=== PATIENT | female | born 1985 | race Caucasian/White ===

== ENCOUNTER 2021-05-04 18:25 | Emergency (ER) | payer OTHER, SELFPAY ==
[2021-05-04 18:28] VITALS: BMI 33.3
--- NOTE | 2021-05-04 18:32 | ED_ITS ---
HPI - Psych General Chief Complaint: Urogenital-Female Stated Complaint: uti/retention, crisis Source: patient and EMS Mode of arrival: EMS Limitations: no limitations History of Present Illness HPI Narrative: 35-year-old female presents for marrow [place] via EMS for inability to straight cath and feelings of urinary retention. Patient is also suicidal. MD complaint: suicidal ideation Onset (ago): unknown Duration: constant History of same: Yes Relieving factors: none Associated psychiatric symptoms: depression, suicidal ideation, auditory hallucinations, visual hallucinations and delusions Associated symptoms: other (Urinary retention) If self harm: admits thoughts of self harm Related Data Previous Rx's Medication Instructions Recorded nitrofurantoin 100 mg PO Q12H 7 Days #14 cap 05/04/21 monohydrate/macrocrystals 100 mg capsule (Macrobid) Allergies Allergy/AdvReac Type Severity Reaction Status Date / Time No Known Allergies Allergy Verified 05/04/21 18:33 Review of Systems Review of Systems: Constitutional: No Fever, No Chills ENT/Mouth: No Ear Pain, No Nasal Congestion, No sore throat Eyes: No Eye Pain, No Swelling, No Redness Cardiovascular: No Chest Pain, No SOB Respiratory: No Cough, No Sputum, No Dyspnea Gastrointestinal: No Nausea, No Vomiting, No Diarrhea, No Hematochezia, No Melena Genitourinary: Positive urinary retention, No Dysuria, No Urinary Frequency, No Hematuria Musculoskeletal: No Myalgias Skin: No Skin Lesions, No rash Neuro: No Weakness, No Numbness, No Paresthesias, No Dizziness, No Headache Psych: positive Anxiety, positive Depression, positive SI/HI Heme/Lymph: No Lymphadenopathy Endocrine: No Polyuria, No Polydipsia Yes all other systems are reviewed and are negative [facility] Past Medical History Attestation statement: The following information was validated with the patient. Source: old records reviewed Social History Social History Advance Directives: No Advance Directives Information Provided: No Patient : No Physical Exam Vital Signs: Vital Signs: Last Vital Signs Temp 98.4 F 05/04/21 18:33 Pulse 92 05/04/21 18:33 Resp 16 05/04/21 18:33 BP 149/98 H 05/04/21 18:33 Pulse Ox 98 05/04/21 18:33 BMI result Body Mass Index 33.3 Appearance: Alert. Oriented X3. No acute distress. Eyes: Pupils equal, round and reactive to light. Strabismus noted. ENT: Pharynx normal. Moist mucous membranes. Neck: Normal inspection. Neck supple. CVS: Normal heart rate and rhythm. Pulses normal. Respiratory: No respiratory distress. Breath sounds normal. Abdomen: Soft and nontender. Skin: Skin warm and dry. Normal skin color. Normal skin turgor. Extremities: No lower extremity edema. Gait well-balanced well coordinated. Neuro: No motor deficit. No sensory deficit. Cranial nerves 2-12 intact. Course Course Course Narrative: 35-year-old female presents via EMS from [facility] for urinary retention. [facility] attempted to straight catheter however they did not obtain any urine. They did not have a bladder scan and referred her to the emergency department. The plan is for patient to return to [facility] for inpatient psychiatric care once evaluation has been completed. Bladder scan is 150. No indication of retention this time. Plan of care is to return patient to [facility]. MDM - Psych MDM Narrative Medical decision making narrative: UTI Differential Diagnosis Differential diagnosis: Likely acute psychosis Medical Records Attestation: I reviewed the patient's medical records. Lab Data Attestation: I reviewed the patient's lab results. Result diagrams: 05/04/21 19:10 05/04/21 19:10 Labs: Lab Results 05/04/21 05/04/21 05/04/21 Range/Units 19:10 19:10 19:10 WBC 11.8 H (4.8-10.8) X10*3/uL RBC 4.33 (4.20-5.50) X10*6/uL Hgb 13.7 (12.0-16.0) g/dl Hct 40.8 (37.0-47.0) % MCV 94.2 (80.0-98.0) fL MCH 31.6 (27.0-33.0) pg MCHC 33.6 (31.0-35.0) g/dl RDW 12.4 (11.0-16.0) % Plt Count 288 (160-400) X10*3/uL MPV 9.0 L (9.4-12.3) fL Immature Gran % (Auto) 0.4 (0.0-0.4) % Neut % (Auto) 71.7 (45-73) % Lymph % (Auto) 17.4 L (20-40) % [place] % (Auto) 10.4 (2-11) % Eos % (Auto) 0.0 (0-4) % Baso % (Auto) 0.1 (0-2) % Lymph # (Auto) 2.1 (1.2-4.9) X10*3/uL [place] # (Auto) 1.2 (0.1-1.2) X10*3/uL Eos # (Auto) 0.0 (0.0-0.4) X10*3/uL Baso # (Auto) 0.0 (0.0-0.2) X10*3/uL Abs Immat Gran (auto) 0.05 H (0.00-0.03) X10*3/uL Absolute Neuts (auto) 8.5 H (2.0-8.3) x10*3/uL Absolute Nucleated RBC 0.000 (0.0-0.012) X10*3/uL Nucleated RBC % (auto) 0.0 (0.0-0.2) /100WBC Sodium 138 (135-145) mmol/L Potassium 4.1 (3.3-5.1) mmol/L Chloride 103 (96-108) mmol/L Carbon Dioxide 26 (22-29) mmol/L Anion Gap 13 (12-20) BUN 15 (9-16) mg/dL Creatinine 1.00 (0.5-1.4) mg/dL Estim Creat Clear Calc 89.0 Estimated GFR > 60 Random Glucose 104 (60-115) mg/dL Calcium 9.6 (8.4-10.2) mg/dL Total Bilirubin 0.4 (0.0-1.0) mg/dL Direct Bilirubin 0.2 (0.0-0.5) mg/dL AST 42 H (5-31) U/L ALT 57 H (0-31) U/L Alkaline Phosphatase 92 (39-117) U/L Total Protein 7.5 (6.5-8.0) g/dL Albumin 4.4 (3.5-5.0) g/dL Lipase 29 (8-78) U/L Ethyl Alcohol < 10 mg/dL COVID-19 (STEVIE) (Negative) COVID-19 Clin Com 05/04/21 Range/Units 19:10 WBC (4.8-10.8) X10*3/uL RBC (4.20-5.50) X10*6/uL Hgb (12.0-16.0) g/dl Hct (37.0-47.0) % MCV (80.0-98.0) fL MCH (27.0-33.0) pg MCHC (31.0-35.0) g/dl RDW (11.0-16.0) % Plt Count (160-400) X10*3/uL MPV (9.4-12.3) fL Immature Gran % (Auto) (0.0-0.4) % Neut % (Auto) (45-73) % Lymph % (Auto) (20-40) % [place] % (Auto) (2-11) % Eos % (Auto) (0-4) % Baso % (Auto) (0-2) % Lymph # (Auto) (1.2-4.9) X10*3/uL [place] # (Auto) (0.1-1.2) X10*3/uL Eos # (Auto) (0.0-0.4) X10*3/uL Baso # (Auto) (0.0-0.2) X10*3/uL Abs Immat Gran (auto) (0.00-0.03) X10*3/uL Absolute Neuts (auto) (2.0-8.3) x10*3/uL Absolute Nucleated RBC (0.0-0.012) X10*3/uL Nucleated RBC % (auto) (0.0-0.2) /100WBC Sodium (135-145) mmol/L Potassium (3.3-5.1) mmol/L Chloride (96-108) mmol/L Carbon Dioxide (22-29) mmol/L Anion Gap (12-20) BUN (9-16) mg/dL Creatinine (0.5-1.4) mg/dL Estim Creat Clear Calc Estimated GFR Random Glucose (60-115) mg/dL Calcium (8.4-10.2) mg/dL Total Bilirubin (0.0-1.0) mg/dL Direct Bilirubin (0.0-0.5) mg/dL AST (5-31) U/L ALT (0-31) U/L Alkaline Phosphatase (39-117) U/L Total Protein (6.5-8.0) g/dL Albumin (3.5-5.0) g/dL Lipase (8-78) U/L Ethyl Alcohol mg/dL COVID-19 (STEVIE) Negative (Negative) COVID-19 Clin Com See Note Discharge Plan Discharge Clinical Impression: Urinary tract infection Patient Disposition: Xfer Psychiatric Hosp Instructions: Urinary Tract Infection in Women (ED) Additional Instructions: You were evaluated for urinary retention. Bladder scan indicates 150 mL of urine in the bladder. We will treat you for urinary tract infection. Please take Macrobid 100 mg twice a day for the next 7 days. Continue to follow-up with psychiatry and all medications per Shira Damian. Thank you for choosing this emergency department for evaluation. Please follow-up with primary care physician as needed. Return to the emergency department for any new, concerning, or worsening symptoms. Prescriptions: New nitrofurantoin monohyd/m-cryst [Macrobid] 100 mg capsule 100 mg PO Q12H 7 Days Qty: 14 0RF Rx Instructions: must administer with a meal/food Interventions: ED Discharge Assessment Last Done: 05/04/21 20:43 Discharge Date/Time: 05/04/21 20:45
[2021-05-04 18:33] VITALS: BP 149/98; PULSE 92; RESP 16; TEMP 36.9; O2SAT 98
[2021-05-04 19:15] LABS: MANUAL DIFF FLAG NO
[2021-05-04 19:16] LABS: Basophils Percent Auto 0.1 % (0-2); Hematocrit 40.8 % (37.0-47.0); Hemoglobin 13.7 g/dl (12.0-16.0); Imm Gran Abs Auto 0.05 X10*3/uL (0.00-0.03); Imm Gran Pct Auto 0.4 % (0.0-0.4); Lymphocytes Absolute Auto 2.1 X10*3/uL (1.2-4.9); Lymphocytes Percent Auto 17.4 % (20-40); Mean Corpuscular HGB Conc 33.6 g/dl (31.0-35.0); Mean Corpuscular Hemoglobin 31.6 pg (27.0-33.0); Mean Corpuscular Volume 94.2 fL (80.0-98.0); Monocytes Absolute Auto 1.2 X10*3/uL (0.1-1.2); Monocytes Percent Auto 10.4 % (2-11); Neutrophils Absolute Auto 8.5 x10*3/uL (2.0-8.3); Neutrophils Percent Auto 71.7 % (45-73); Platelet Count 288 X10*3/uL (160-400); Red Blood Count 4.33 X10*6/uL (4.20-5.50); Red Cell Distribution Width 12.4 % (11.0-16.0); White Blood Count 11.8 X10*3/uL (4.8-10.8)
[2021-05-04 19:32] LABS: COVID-19 Test Negative (Negative); Ethanol < 10 mg/dL
[2021-05-04 19:35] LABS: Alanine Aminotransferase 57 U/L (0-31); Albumin Level 4.4 g/dL (3.5-5.0); Alkaline Phosphatase 92 U/L (39-117); Anion Gap 13 (12-20); Aspartate Amino Transferase 42 U/L (5-31); Bilirubin Direct 0.2 mg/dL (0.0-0.5); Bilirubin Total 0.4 mg/dL (0.0-1.0); Blood Urea Nitrogen 15 mg/dL (9-16); Calcium 9.6 mg/dL (8.4-10.2); Carbon Dioxide 26 mmol/L (22-29); Chloride 103 mmol/L (96-108); Estimated Glomerular Filt Rate > 60; Glucose Random 104 mg/dL (60-115); Lipase 29 U/L (8-78); Potassium 4.1 mmol/L (3.3-5.1); Sodium 138 mmol/L (135-145); Total Protein 7.5 g/dL (6.5-8.0)
[2021-05-04] MEDS: Nitrofurantoin Monohyd/M-Cryst 100 MG CAPSULE PO (20:29)
--- NOTE | 2021-05-04 20:38 | PC.NURSE ---
ATTEMPTING TO CALL [facility] MULTIPLE TIMES, ONLY RECEIVING A BUSY SIGNAL OR RECORDED LINE WITH NO OPTION TO TALK TO A STAFF MEMBER TO EXPLAIN THAT PATIENT IS RETURNING TO FACILITY. PATIENT MEDICATED PER MAR AND REPORT GIVEN TO EMS
== END 2021-05-04 20:45 ==
PROVIDERS: Nurse Practitioner Family; Emergency Provider Internal Medicine
DX: N39.0 Urinary tract infection, site not specified (principal); R33.9 Retention of urine, unspecified; R45.851 Suicidal ideations; F33.1 Major depressive disorder, recurrent, moderate; R44.0 Auditory hallucinations; R44.1 Visual hallucinations; Z20.822 Contact with and (suspected) exposure to COVID-19; Z79.899 Other long term (current) drug therapy
CPT/HCPCS: 36415; 51798; 80048; 80076; 82077; 83690; 85025; 87635; 99283; 99284

== ENCOUNTER 2021-05-21 18:37 | Inpatient (IN) | payer OTHER, SELFPAY ==
[2021-05-21] MEDS: clonazePAM 0.5 MG TABLET PO (20:25)
[2021-05-21] MEDS: Melatonin 3 MG TABLET 6 MG PO (20:25)
[2021-05-21] MEDS: risperiDONE 2 MG TABLET PO (20:25)
[2021-05-21] MEDS: Zolpidem Tartrate 5 MG TABLET PO (20:25)
[2021-05-21] MEDS: Benztropine Mesylate 1 MG TABLET PO (20:58)
[2021-05-21] MEDS: traZODone HCL 50 MG TABLET PO (21:56)
--- NOTE | 2021-05-21 22:39 | PC.ADMIT ---
35 y.o. female admitted from [facility] on a CV for psychiatric evaluation. Per crisis report: Pt was discharged from [facility] on and has been hearing voices. Pt expressed suicidality at times to her [facility] therapist. Pt has been hearing voices telling her kill self and other people . On admission Pt presents A&O, 7/10 anxiety, 8/10 depression, and guarded. Pt reported to RN that she is unable to urinate but was able to void. PVR 27mls. Pt reports that she is hearing voices to kill self . Pt reports +SI with no plan or intent. Pt contracted for safety. Pt denies hi,vh at this time. Pt reported that she can't sit for long periods of time and has to get up to walk. Case discussed with mark Loera. Pt on 15 minute checks. Pt reports PMHx: Hypothyroidism, HTH, Anxiety, Hernia Sx 2019
[2021-05-21 22:55] VITALS: BMI 42.0
[2021-05-22] MEDS: traZODone HCL 50 MG TABLET PO (00:42)
[2021-05-22] MEDS: hydrOXYzine HCL 25 MG TABLET PO ×2 (00:42→16:09)
[2021-05-22] MEDS: Benztropine Mesylate 1 MG TABLET PO ×3 (04:14→20:03)
[2021-05-22] MEDS: Levothyroxine Sodium 112 MCG TABLET PO (04:14)
[2021-05-22] MEDS: clonazePAM 0.5 MG TABLET PO ×3 (04:14→20:09)
[2021-05-22 05:56] VITALS: BP 142/90; PULSE 98; RESP 18; TEMP 36.4; O2SAT 98
[2021-05-22 07:00] VITALS: BMI 41.1
[2021-05-22] MEDS: Sertraline HCL 50 MG TABLET 150 MG PO (08:30)
[2021-05-22] MEDS: risperiDONE 2 MG TABLET PO (08:31)
[2021-05-22 09:04] LABS: Estimated Average Glucose 108 mg/dL; Hemoglobin A1c % 5.4 %
--- NOTE | 2021-05-22 09:48 | HO.PM.IMCN ---
History of Present Illness Data of Consult Service Date: 05/22/21 Primary Care Provider: Unknown Physician HPI Reason for consult: Routine Medical H&P This is a 35 yo F with a PMH of hypothyroidism who is admitted to the inpatient psych unit. Medical consult requested for routine medical H&P. Pt is seen and examined in the exam room. market risk manager is present for the H&P. Pt requesting her psychiatric medications. She reports a history of hyperthyroidism (I believe she meant hypo as she is on synthroid) and HTN (do not see any medications on her med list). PMH ?? HTN (although not on meds) Hypothryoidism PSH Hernia repair SH Denies tobacco, alcohol, illicit substances FH None that she is aware of. Review of Systems Review of Systems: negative except HPI PMFSH Social History Household Members: Spouse, Family and Children Housing: Apartment Do you presently have visiting nurse or other home services: Yes Patient Tobacco Use Status: Former Tobacco user Use of substances other than those prescribed or required for medical reasons: No Currently Displaying Signs/Symptoms of Drug Intoxication Withdrawal: No Any prior treatment program specific to substance use: No Have you been hit, kicked, punched, or otherwise hurt by someone within the past year? If so, by whom?: No Do you feel safe in your current relationship?: Yes Is there a partner from a previous relationship who is making you feel unsafe now?: No Are you made to feel afraid or neglected: No Spiritual Healthcare Practices: Zoroastrian Advance Directives: No Advance Directives Information Provided: No Do you have thoughts of harming others: None Do you have a plan to hurt others: No Plan Recently lost weight without trying: No Nutrition Risks: No Nutritional Risk Patient : No : No Poor oral hygiene: No Meds Allergies Allergy/AdvReac Type Severity Reaction Status Date / Time No Known Allergies Allergy Verified 05/04/21 18:33 Active Medications: Current Medications Acetaminophen (Acetaminophen 325 Mg Tablet) 650 mg PO Q6H PRN PRN Reason: Headache/Pain Mild Scale (1-3) Al Hydroxide/Mg Hydroxide (Magnesium Hydrox/Alum Hydrox 30 Ml Oral.Susp) 30 ml PO Q6H PRN PRN Reason: Heartburn/Nausea Benztropine Mesylate (Benztropine Mesylate 1 Mg Tablet) 1 mg PO BID PRN PRN Reason: akathesia Last Admin: 05/22/21 08:31 Dose: 1 mg Documented by: Clonazepam (Clonazepam 0.5 Mg Tablet) 0.5 mg PO BID PRN PRN Reason: extreme anxiety Last Admin: 05/22/21 08:30 Dose: 0.5 mg Documented by: Hydroxyzine HCl (Hydroxyzine Hcl 25 Mg Tablet) 25 mg PO Q6H PRN PRN Reason: Anxiety Last Admin: 05/22/21 00:42 Dose: 25 mg Documented by: Levothyroxine Sodium (Levothyroxine Sodium 112 Mcg Tablet) 112 mcg PO DAILY@0600 [facility] Last Admin: 05/22/21 04:14 Dose: 112 mcg Documented by: Magnesium Hydroxide (Milk Of Magnesia 30 Ml Oral.Susp) 30 ml PO DAILY PRN PRN Reason: Constipation Melatonin (Melatonin 3 Mg Tablet) 6 mg PO BEDTIME PRN PRN Reason: insomnia Last Admin: 05/21/21 20:25 Dose: 6 mg Documented by: Risperidone (Risperidone 2 Mg Tablet) 2 mg PO BID [facility] Last Admin: 05/22/21 08:31 Dose: 2 mg Documented by: Sertraline HCl (Sertraline Hcl 50 Mg Tablet) 150 mg PO DAILY [facility] Last Admin: 05/22/21 08:30 Dose: 150 mg Documented by: Trazodone HCl (Trazodone Hcl 50 Mg Tablet) 50 mg PO BEDTIME PRN PRN Reason: Insomnia Last Admin: 05/22/21 00:42 Dose: 50 mg Documented by: Zolpidem Tartrate (Zolpidem Tartrate 5 Mg Tablet) 5 mg PO BEDTIME PRN PRN Reason: Insomnia Last Admin: 05/21/21 20:25 Dose: 5 mg Documented by: Physical Exam Vital Signs and Narrative: Vital Signs: Last Vital Signs Temp 97.6 F 05/22/21 05:56 Pulse 98 05/22/21 05:56 Resp 18 05/22/21 05:56 BP 142/90 H 05/22/21 05:56 Pulse Ox 98 05/22/21 05:56 BMI result Body Mass Index 42.0 Const: Other: Constitutional - Awake and Alert, No apparent distress Eyes - PERRLA, EOMI, strabismus on the L eye Cardiovascular - S1S2, RRR, No edema Respiratory - Normal lung expansion, Normal respiratory effort, No respiratory distress, CTA bilaterally Gastrointestinal - NT / ND; +BS; No rebound or guarding - No CVA tenderness Extremities - no calf tenderness bilaterally, no swelling Musculoskeletal - Normal inspection, normal ROM Skin - Warm/Dry Neurological - Alert & oriented x3, No focal deficit; CN 2-12 intact bilaterally Results Labs Labs: Laboratory Results - last 24 hr 05/22/21 08:03 Estimat Average Glucose 108 Hemoglobin A1c % 5.4 Assessment and Plan (1) Routine medical exam: Status: Acute Plan This is a 35 yo F with a PMH of hypothyroidism who is admitted to the inpatient psych unit. Medical consult requested for routine medical H&P. Hypothyroid Continue her synthroid In regards to the patients reported history of HTN - BP measure this AM is slightly elevated; Can continue her baseline meds if she is on any. If not any meds, do not feel that she needs to be started on antihypertensives at this time. Continue with routine BP monitoring. Check routine labs if not done so recently. Medically stable at this time, will sign off. Reconsult PRN. Thank you.
[2021-05-22 10:08] LABS: Cholesterol 213 mg/dL; HDL Cholesterol 38 mg/dL; LDL Cholesterol Calculated 154 mg/dl; Magnesium 2.2 mg/dL (1.6-2.6); Triglycerides 107 mg/dL
[2021-05-22 10:32] LABS: Free T4 (Free Thyroxine) 1.48 ng/dL (0.71-1.85); Thyroid Stimulating Hormone 3.47 uIU/mL (0.32-4.0)
[2021-05-22 10:40] LABS: Vitamin B12 312 pg/mL (200-900)
[2021-05-22 10:49] LABS: UPreg QC Valid YES; Urine Pregnancy NEGATIVE (NEGATIVE)
[2021-05-22] MEDS: OXcarbazepine 300 MG TABLET PO ×2 (11:19→20:03)
[2021-05-22] MEDS: LORazepam 1 MG TABLET 2 MG PO (11:19)
--- NOTE | 2021-05-22 17:30 | P.HPPS_ITS ---
HPI Date of Service: 05/22/21 Chief Complaint: Major Depressive Disorder Sources of Information: patient interviewed, chart reviewed and crisis/core team assessment reviewed HPI Subjective Notes: [place] Warning and Conditional Voluntary Healthcare Proxy: No Guardianship: No Narrative: 35 yo female, transfer from [facility], discharged from [facility] 3 with reports of AH, depression, SI, HI. Reports disrupted sleep and appetite along with perceptual alterations. Crisis reports medicine inconsistency. Lynnette from [facility] reports pt's new med list included Benztropine 1 mg bid, Levothyr ozine 112 mcg daily, Seroquel 100 mg a.m. 400 mg hs, Haldol 2 mg a.m and Propranolol 10 mg tid. Met with pt who was very anxious and experiencing Akathesia. Ativan 2 mg po given with some relief for pt. Due to her level of distress she is a poor historian, however, did interact with tw several times during the day, asking appropriate questions and accepting assistance from the team. Past Psychiatric History: IP: 6 OP: [place]- Lynnette Frazier and Arlet Zapata, and a clinician from [facility] Also has Lynnette from the [facility] SA: Denies SIBS: Denies Med Trials: Yes, but I am not sure which ones. Medical Evaluation Reviewed: Yes [facility] Medical History (Updated 05/22/21 @ 19:20 by Sonam Lazaro, JE) Severe recurrent major depression w/psychotic features, mood-congruent Narrative: HTN Hypothyroidism Narrative: Hernia surgery 2019 Family History: Pt denies Social History: Raised locally by her mother. One of nine, four are half- siblings. Disabled, receives SSI 8 years, two children, ages 7 and 2. The family shares a home with other family members Substance History: Denies Stopped cannabis in 2018 Trauma History: Mom in 2019 Mother in law recently as well she states Diagnostics Vital Signs (24Hr): Vital Signs - 24 hr 05/22/21 05:56 Temperature 97.6 F Pulse Rate 98 Respiratory Rate 18 Blood Pressure 142/90 H Pulse Oximetry 98 BMI result Body Mass Index 41.1 Labs Labs: Laboratory Results - last 48 hr 05/22/21 05/22/21 05/22/21 08:03 08:03 08:03 Estimat Average Glucose 108 Hemoglobin A1c % 5.4 Magnesium 2.2 Triglycerides 107 Cholesterol 213 LDL Cholesterol, Calc 154 HDL Cholesterol 38 Vitamin B12 312 Folate 17.0 TSH 3.47 Free T4 1.48 Urine Test 05/22/21 10:15 Estimat Average Glucose Hemoglobin A1c % Magnesium Triglycerides Cholesterol LDL Cholesterol, Calc HDL Cholesterol Vitamin B12 Folate TSH Free T4 Urine Test NEGATIVE Meds/Allergies Meds Home Medications Acetaminophen (Acetaminophen 325 Mg Tablet) 650 mg PO Q6H PRN PRN Reason: Headache/Pain Mild Scale (1-3) Al Hydroxide/Mg Hydroxide (Magnesium Hydrox/Alum Hydrox 30 Ml Oral.Susp) 30 ml PO Q6H PRN PRN Reason: Heartburn/Nausea Benztropine Mesylate (Benztropine Mesylate 1 Mg Tablet) 1 mg PO BID [facility] Clonazepam (Clonazepam 0.5 Mg Tablet) 0.5 mg PO BID PRN PRN Reason: extreme anxiety Last Admin: 05/22/21 08:30 Dose: 0.5 mg Documented by: Haloperidol (Haloperidol 1 Mg Tablet) 2 mg PO DAILY [facility] Hydroxyzine HCl (Hydroxyzine Hcl 25 Mg Tablet) 25 mg PO Q6H PRN PRN Reason: Anxiety Last Admin: 05/22/21 16:09 Dose: 25 mg Documented by: Levothyroxine Sodium (Levothyroxine Sodium 112 Mcg Tablet) 112 mcg PO SHIMA Y@0600 [facility] Last Admin: 05/22/21 04:14 Dose: 112 mcg Documented by: Magnesium Hydroxide (Milk Of Magnesia 30 Ml Oral.Susp) 30 ml PO DAILY PRN PRN Reason: Constipation Melatonin (Melatonin 3 Mg Tablet) 6 mg PO BEDTIME PRN PRN Reason: insomnia Last Admin: 05/21/21 20:25 Dose: 6 mg Documented by: Oxcarbazepine (Oxcarbazepine 300 Mg Tablet) 300 mg PO BID [facility] Last Admin: 05/22/21 11:19 Dose: 300 mg Documented by: Propranolol HCl (Propranolol Hcl 10 Mg Tablet) 10 mg PO TID [facility]; Protocol Quetiapine Fumarate (Quetiapine Fumarate 100 Mg Tablet) 100 mg PO DAILY [facility] Quetiapine Fumarate (Quetiapine Fumarate 400 Mg Tablet) 400 mg PO BEDTIME [facility] Sertraline HCl (Sertraline Hcl 50 Mg Tablet) 150 mg PO DAILY [facility] Last Admin: 05/22/21 08:30 Dose: 150 mg Documented by: Zolpidem Tartrate (Zolpidem Tartrate 5 Mg Tablet) 5 mg PO BEDTIME PRN PRN Reason: Insomnia Last Admin: 05/21/21 20:25 Dose: 5 mg Documented by: Allergies Allergies Allergy/AdvReac Type Severity Reaction Status Date / Time shellfish derived AdvReac Severe Vomiting Verified 05/22/21 19:21 Mental Status Exam Mental Status Exam Patient Appearance: Fatigued Patient Orientation: Person, Place, Time and Situation Level of Consciousness: Alert Patient Behavior: Talkative and Good Eye Contact Mood Description: Anxious and Apprehensive Affect Description: Constricted Patient Cognition Impaired: Yes Ability to Follow Directions: Good Speech Pattern: Spontaneous Speech Memory Description: Episodic Impaired Hallucinations: Auditory and Visual Delusions: Paranoid Ideation and Present Perceptual Disturbances: Depersonalization and Derealization Thought Process: Racing, Distracted and Rumination Thought Content: positive for Racing, positive for [place], positive for Circumstantial, positive for Perseveration, positive for Suicidal Ideation and positive for Homicidal Ideation Depressive Symptoms: Increased Anxiety, Diff. Making Decisions, Increased Irritability, Difficulty Sleeping, Hopelessness, Unhappiness, Increased Fatigue, Thoughts of /Suicide and Low Self Esteem Abnormal Motor Activity Signs and Symptoms: Restlessness Judgement: Fair Assessment & Plan Assessment & Plan (1) Severe recurrent major depression w/psychotic features, mood-congruent: Status: Acute Code(s): F33.3 - Major depressive disorder, recurrent, severe with psychotic symptoms Plan 35 yo female, recent discharge from [facility] reporting an increase in depressive sx with SI, HI, AH, VH and paranoia. Plan: Re-establish regime Attempt to treat akathesia Labs, EKG Trileptal 300 mg bid to assist with anxiety, mood mgt. Collateral contacts Patient educated on: diagnosis, medication risk/benefits and therapeutic strategies Informed Consent: understands and further education needed Reason for continued inpatient stay Substantial Risk for: harm to self, harm to others, inability to function and rapid decompensation
[2021-05-22 18:00] VITALS: BP 118/79; PULSE 68; RESP 16; TEMP 36.5; O2SAT 98
[2021-05-22] MEDS: Propranolol HCL 10 MG TABLET PO (20:03)
[2021-05-22] MEDS: QUEtiapine Fumarate 400 MG TABLET PO (20:03)
[2021-05-22] MEDS: Melatonin 3 MG TABLET 6 MG PO (20:08)
[2021-05-22] MEDS: Acetaminophen 325 MG TABLET 650 MG PO (20:30)
--- NOTE | 2021-05-22 23:10 | PC.NURSE ---
Pt alert and oriented. VSS. reported difficulty urinating, bladder scan assessment done. 125ml Residual recorded.
[2021-05-22] MEDS: Zolpidem Tartrate 5 MG TABLET PO (23:53)
[2021-05-23 06:00] VITALS: BP 124/100; PULSE 98; RESP 16; TEMP 36.6; O2SAT 97
[2021-05-23] MEDS: Levothyroxine Sodium 112 MCG TABLET PO (06:43)
[2021-05-23 08:35] LABS: Estimated Average Glucose 108 mg/dL; Hemoglobin A1c % 5.4 %
[2021-05-23] MEDS: Sertraline HCL 50 MG TABLET 150 MG PO (08:56)
[2021-05-23] MEDS: QUEtiapine Fumarate 100 MG TABLET PO (08:56)
[2021-05-23] MEDS: OXcarbazepine 300 MG TABLET PO (08:56)
[2021-05-23] MEDS: Propranolol HCL 10 MG TABLET PO ×3 (08:56→20:03)
[2021-05-23] MEDS: HaloperidoL 1 MG TABLET 2 MG PO (08:56)
[2021-05-23] MEDS: Benztropine Mesylate 1 MG TABLET PO (08:56)
--- NOTE | 2021-05-23 09:00 | ECG_ITS ---
Test Reason : CK CQ Blood Pressure : / mmHG Vent. Rate : 089 BPM Atrial Rate : 089 BPM P-R Int : 130 ms QRS Dur : 084 ms QT Int : 360 ms P-R-T Axes : 040 032 -12 degrees QTc Int : 438 ms Sinus rhythm with occasional Premature ventricular complexes Otherwise normal ECG No previous ECGs available Referred By: Sonam Lazaro Electronically Signed By:ESPERANZA ANGEL MD
[2021-05-23 13:03] LABS: Vitamin B12 319 pg/mL (200-900)
[2021-05-23] MEDS: clonazePAM 0.5 MG TABLET PO (13:31)
[2021-05-23] MEDS: Milk of Magnesia 30 ML ORAL.SUSP PO (13:33)
--- NOTE | 2021-05-23 14:33 | P.PNPSI_ITS ---
Subjective Subjective Date of Service: 05/23/21 Reason For Visit: Major Depressive Disorder Subjective Notes: Conditional Voluntary Medical Problems Affecting Mental Status: No Interim History: Anthony reports she did not sleep well. Today she has experienced urinary retention, reports constipation, and continues with akathesia symptoms. Medication review--potential offending agents reviewed and discontinued- hydroxyzine, benztropine, haldol, trileptal taper to complete on 05/25. Given MOM for constipation. Akathesia sx addressed by scheduling Klonopin, adding low dose Gabapentin, low dose Mirtazapine, and will continue Propranolol. Discussed with pt changing Seroquel, however, she reports this has been helpful and she would like to continue this agent. Recent med changes as she was recently discharged from [facility] 05/16/21. Pt denies SI. Reports safety on the unit and feels she can let the team know if her safety is at risk. Medication Compliance: Yes Side effects from medications: No Attending Groups: Intermittent Review of Systems Akathesia Urinary Retention Constipation Medical Review of Systems: unchanged Review of Systems Gastrointestinal: Reports constipation Genitourinary: Reports other (urinary retention-relieved with nursing interventions) Reports other (akathesia) Psychiatric: Reports abnormal sleep pattern, Reports anxiety, Reports depression, Reports difficulty concentrating, Reports anhedonia, Reports homicidal ideation and Reports suicidal ideation Mental Status Exam Mental Status Exam Patient Appearance: Fatigued Patient Orientation: Person, Place, Time and Situation Level of Consciousness: Alert Patient Behavior: Talkative and Good Eye Contact Mood Description: Anxious and Apprehensive Affect Description: Constricted Patient Cognition Impaired: Yes Ability to Follow Directions: Good Speech Pattern: Spontaneous Speech Memory Description: Episodic Impaired Hallucinations: Auditory and Visual Delusions: Paranoid Ideation and Present Perceptual Disturbances: Depersonalization and Derealization Thought Process: Racing, Distracted and Rumination Thought Content: positive for [place], positive for [place], positive for Circumstantial, positive for Perseveration, positive for Suicidal Ideation and positive for Homicidal Ideation Depressive Symptoms: Increased Anxiety, Diff. Making Decisions, Increased I rritability, Difficulty Sleeping, Hopelessness, Unhappiness, Increased Fatigue, Thoughts of /Suicide and Low Self Esteem Abnormal Motor Activity Signs and Symptoms: Restlessness Judgement: Fair Diagnostics Vital Signs (24Hr): Vital Signs - 24 hr 05/22/21 18:00 05/23/21 06:00 Temperature 97.7 F 97.8 F Pulse Rate 68 98 Respiratory Rate 16 16 Blood Pressure 118/79 124/100 H Pulse Oximetry 98 97 BMI result Body Mass Index 41.1 Labs Labs: Laboratory Results - last 48 hr 05/22/21 05/22/21 05/22/21 08:03 08:03 08:03 Estimat Average Glucose 108 Hemoglobin A1c % 5.4 Magnesium 2.2 Triglycerides 107 Cholesterol 213 LDL Cholesterol, Calc 154 HDL Cholesterol 38 Vitamin B12 312 Folate 17.0 TSH 3.47 Free T4 1.48 Urine Test 05/22/21 05/23/21 05/23/21 10:15 07:51 07:51 Estimat Average Glucose 108 Hemoglobin A1c % 5.4 Magnesium Triglycerides Cholesterol LDL Cholesterol, Calc HDL Cholesterol Vitamin B12 319 Folate 17.0 TSH Free T4 Urine Test NEGATIVE Medications Medications Current Medications Acetaminophen (Acetaminophen 325 Mg Tablet) 650 mg PO Q6H PRN PRN Reason: Headache/Pain Mild Scale (1-3) Last Admin: 05/22/21 20:30 Dose: 650 mg Documented by: Al Hydroxide/Mg Hydroxide (Magnesium Hydrox/Alum Hydrox 30 Ml Oral.Susp) 30 ml PO Q6H PRN PRN Reason: Heartburn/Nausea Clonazepam (Clonazepam 1 Mg Tablet) 1 mg PO BID [facility] Levothyroxine Sodium (Levothyroxine Sodium 112 Mcg Tablet) 112 mcg PO DAILY@0600 [facility] Last Admin: 05/23/21 06:43 Dose: 112 mcg Documented by: Magnesium Hydroxide (Milk Of Magnesia 30 Ml Oral.Susp) 30 ml PO DAILY PRN PRN Reason: Constipation Last Admin: 05/23/21 13:33 Dose: 30 ml Documented by: Melatonin (Melatonin 3 Mg Tablet) 6 mg PO BEDTIME PRN PRN Reason: insomnia Last Admin: 05/22/21 20:08 Dose: 6 mg Documented by: Oxcarbazepine (Oxcarbazepine 300 Mg Tablet) 300 mg PO DAILY [facility] Stop: 05/25/21 09:00 Propranolol HCl (Propranolol Hcl 10 Mg Tablet) 10 mg PO TID [facility]; Protocol Last Admin: 05/23/21 14:12 Dose: 10 mg Documented by: Quetiapine Fumarate (Quetiapine Fumarate 100 Mg Tablet) 100 mg PO DAILY [facility] Last Admin: 05/23/21 08:56 Dose: 100 mg Documented by: Quetiapine Fumarate (Quetiapine Fumarate 400 Mg Tablet) 400 mg PO BEDTIME [facility] Last Admin: 05/22/21 20:03 Dose: 400 mg Documented by: Sertraline HCl (Sertraline Hcl 50 Mg Tablet) 150 mg PO DAILY [facility] Last Admin: 05/23/21 08:56 Dose: 150 mg Documented by: Zolpidem Tartrate (Zolpidem Tartrate 5 Mg Tablet) 5 mg PO BEDTIME PRN PRN Reason: Insomnia Last Admin: 05/22/21 23:53 Dose: 5 mg Documented by: Allergies Allergies Allergy/AdvReac Type Severity Reaction Status Date / Time shellfish derived AdvReac Severe Vomiting Verified 05/22/21 19:21 Assessment & Plan Assessment & Plan (1) Severe recurrent major depression w/psychotic features, mood-congruent: Status: Acute Code(s): F33.3 - Major depressive disorder, recurrent, severe with psychotic symptoms Plan 35 yo female, recent discharge from [facility] reporting an increase in d epressive sx with SI, HI, AH, VH and paranoia. Plan: Re-establish regime Attempt to treat akathesia Labs, EKG Trileptal 300 mg bid to assist with anxiety, mood mgt. Collateral contacts 05/23/21 Urinary retention- HCG, UA, UC Akathesia-continue propranolol, schedule klonopin, lorazepam prn, low dose Gabapentin, Mirtazapine Discontinue hydroxyzine, benztropine, haldol, taper Trileptal Constipation-monitor Insomnia-continue seroquel, mirtazapine. I spent minutes with the patient and/or on the patient floor today, greater than?50% of which was spent counseling/coordinating care. Patient educated on: medication risk/benefits and therapeutic strategies Informed Consent: further education needed Reason for contiued inpatient stay Substantial Risk for: harm to self, harm to others, inability to function, rapid decompensation and med/psych decompensation
[2021-05-23 17:07] LABS: HCG Quantitative < 2 mIU/mL
[2021-05-23 18:00] VITALS: BP 132/82; PULSE 85; RESP 16; TEMP 36.5; O2SAT 98
[2021-05-23] MEDS: Gabapentin 100 MG CAPSULE PO (20:03)
[2021-05-23] MEDS: QUEtiapine Fumarate 400 MG TABLET PO (20:03)
[2021-05-23] MEDS: Mirtazapine 7.5 MG TABLET PO (20:03)
[2021-05-23] MEDS: clonazePAM 1 MG TABLET PO (20:03)
[2021-05-24 06:00] VITALS: BP 152/99; PULSE 107; RESP 18; TEMP 36.9; O2SAT 98
[2021-05-24] MEDS: Levothyroxine Sodium 112 MCG TABLET PO (06:22)
[2021-05-24] MEDS: Propranolol HCL 10 MG TABLET PO ×3 (09:18→19:57)
[2021-05-24] MEDS: Sertraline HCL 50 MG TABLET 150 MG PO (09:18)
[2021-05-24] MEDS: clonazePAM 1 MG TABLET PO ×2 (09:19→19:56)
[2021-05-24] MEDS: Gabapentin 100 MG CAPSULE PO ×2 (09:19→19:57)
[2021-05-24] MEDS: QUEtiapine Fumarate 100 MG TABLET PO (09:19)
[2021-05-24] MEDS: OXcarbazepine 300 MG TABLET PO (09:19)
[2021-05-24] MEDS: Magnesium Citrate 300 ML SOLUTION PO (14:45)
[2021-05-24 18:00] VITALS: BP 132/82; PULSE 76; RESP 16; TEMP 36.3; O2SAT 98
[2021-05-24] MEDS: QUEtiapine Fumarate 400 MG TABLET PO (19:56)
[2021-05-24] MEDS: Mirtazapine 7.5 MG TABLET PO (19:56)
[2021-05-24] MEDS: Melatonin 3 MG TABLET 6 MG PO (19:58)
--- NOTE | 2021-05-24 23:21 | P.PNPSI_ITS ---
Subjective Subjective Date of Service: 05/24/21 Reason For Visit: Major Depressive Disorder Interim History: says she's good. says she constipated and would like mag citrate. Pt also asks if medications prescribed here will be continued on discharge. [facility]thewise, no complaints, no other requests. pt's post voids<300ml Mental Status Exam Mental Status Exam Narrative: Patient Appearance:?Fatigued Patient Orientation:?Person, Place, Time and Situation Level of Consciousness:?Alert Patient Behavior:?Talkative and Good Eye Contact Mood Description:?'good Affect Description:?Constricted Patient Cognition Impaired:?Yes Ability to Follow Directions:?Good Speech Pattern:?Spontaneous Speech Memory Description:?Episodic Impaired Hallucinations:?Auditory and Visual Delusions:?Paranoid Ideation and Present Perceptual Disturbances:?Depersonalization and Derealization Thought Process:?Racing, Distracted and Rumination Thought Content:?positive for [place], positive for [place], positive for Circum[place], positive for Persever[place], positive for Suicidal Ideation and positive for Homicidal Ideation Depressive Symptoms:?Increased Anxiety, Diff. Making Decisions, Increased Irritability, Difficulty Sleeping, Hopelessness, Unhappiness, Increased Fatigue, Thoughts of /Suicide and Low Self Esteem Abnormal Motor Activity Signs and Symptoms:?Restlessness Judgement:?Fair Diagnostics Vital Signs (24Hr): Vital Signs - 24 hr 05/24/21 06:00 Temperature 98.4 F Pulse Rate 107 H Respiratory Rate 18 Blood Pressure 152/99 H Pulse Oximetry 98 BMI result Body Mass Index 41.1 Labs Labs: Laboratory Results - last 48 hr 05/23/21 05/23/21 05/23/21 07:51 07:51 16:43 Estimat Average Glucose 108 Hemoglobin A1c % 5.4 Vitamin B12 319 Folate 17.0 Beta HCG, Quant < 2 Medications Medications Current Medications Acetaminophen (Acetaminophen 325 Mg Tablet) 650 mg PO Q6H PRN PRN Reason: Headache/Pain Mild Scale (1-3) Last Admin: 05/22/21 20:30 Dose: 650 mg Documented by: Al Hydroxide/Mg Hydroxide (Magnesium Hydrox/Alum Hydrox 30 Ml Oral.Susp) 30 ml PO Q6H PRN PRN Reason: Heartburn/Nausea Clonazepam (Clonazepam 1 Mg Tablet) 1 mg PO BID [facility] Last Admin: 05/24/21 19:56 Dose: 1 mg Documented by: Gabapentin (Gabapentin 100 Mg Capsule) 100 mg PO BID [facility] Last Admin: 05/24/21 19:57 Dose: 100 mg Documented by: Levothyroxine Sodium (Levothyroxine Sodium 112 Mcg Tablet) 112 mcg PO DAILY@0600 [facility] Last Admin: 05/24/21 06:22 Dose: 112 mcg Documented by: Lorazepam (Lorazepam 0.5 Mg Tablet) 0.5 mg PO Q12H PRN PRN Reason: akathesia Magnesium Hydroxide (Milk Of Magnesia 30 Ml Oral.Susp) 30 ml PO DAILY PRN PRN Reason: Constipation Last Admin: 05/23/21 13:33 Dose: 30 ml Documented by: Melatonin (Melatonin 3 Mg Tablet) 6 mg PO BEDTIME PRN PRN Reason: insomnia Last Admin: 05/24/21 19:58 Dose: 6 mg Documented by: Mirtazapine (Mirtazapine 7.5 Mg Tablet) 7.5 mg PO BEDTIME [facility] Last Admin: 05/24/21 19:56 Dose: 7.5 mg Documented by: Oxcarbazepine (Oxcarbazepine 300 Mg Tablet) 300 mg PO DAILY [facility] Stop: 05/25/21 09:00 Last Admin: 05/24/21 09:19 Dose: 300 mg Documented by: Propranolol HCl (Propranolol Hcl 10 Mg Tablet) 10 mg PO TID [facility]; Protocol Last Admin: 05/24/21 19:57 Dose: 10 mg Documented by: Quetiapine Fumarate (Quetiapine Fumarate 100 Mg Tablet) 100 mg PO DAILY [facility] Last Admin: 05/24/21 09:19 Dose: 100 mg Documented by: Quetiapine Fumarate (Quetiapine Fumarate 400 Mg Tablet) 400 mg PO BEDTIME [facility] Last Admin: 05/24/21 19:56 Dose: 400 mg Documented by: Sertraline HCl (Sertraline Hcl 50 Mg Tablet) 150 mg PO DAILY [facility] Last Admin: 05/24/21 09:18 Dose: 150 mg Documented by: Zolpidem Tartrate (Zolpidem Tartrate 5 Mg Tablet) 5 mg PO BEDTIME PRN PRN Reason: Insomnia Last Admin: 05/22/21 23:53 Dose: 5 mg Documented by: Allergies Allergies Allergy/AdvReac Type Severity Reaction Status Date / Time shellfish derived AdvReac Severe Vomiting Verified 05/22/21 19:21 Assessment & Plan Assessment & Plan (1) Severe recurrent major depression w/psychotic features, mood-congruent: Status: Acute Code(s): F33.3 - Major depressive disorder, recurrent, severe with psychotic symptoms Plan 35 yo female, recent discharge from [facility] reporting an increase in depressive sx with SI, HI, AH, VH and paranoia. Plan: Re-establish regime Attempt to treat akathesia Labs, EKG Trileptal 300 mg bid to assist with anxiety, mood mgt. Collateral contacts 05/23/21 Urinary retention- HCG, UA, UC Akathesia-continue propranolol, schedule klonopin, lorazepam prn, low dose Gabapentin, Mirtazapine Discontinue hydroxyzine, benztropine, haldol, taper Trileptal Constipation-monitor Insomnia-continue seroquel, mirtazapine. 05/24 mag citrate x1 otherwise, no changes to regimen I spent minutes with the patient and/or on the patient floor today, greater than?50% of which was spent counseling/coordinating care. Reason for contiued inpatient stay Substantial Risk for: other
[2021-05-25] MEDS: Levothyroxine Sodium 112 MCG TABLET PO (05:26)
[2021-05-25 06:00] VITALS: BP 154/83; PULSE 90; RESP 18; TEMP 36.3
[2021-05-25] MEDS: Propranolol HCL 10 MG TABLET PO ×3 (09:07→19:22)
[2021-05-25] MEDS: Sertraline HCL 50 MG TABLET 150 MG PO (09:07)
[2021-05-25] MEDS: Gabapentin 100 MG CAPSULE PO ×2 (09:07→19:22)
[2021-05-25] MEDS: QUEtiapine Fumarate 100 MG TABLET PO (09:07)
[2021-05-25] MEDS: OXcarbazepine 300 MG TABLET PO (09:07)
[2021-05-25] MEDS: clonazePAM 1 MG TABLET PO ×2 (09:07→19:22)
--- NOTE | 2021-05-25 16:22 | HO.PSYCHPN ---
Subjective Subjective Date of Service: 05/25/21 Reason For Visit: Major Depressive Disorder Interim History: Patient reports that she is feeling overall good today and denies any SI or HI. However she does say that auditory hallucinations have increased and are bothering her, saying bad things. Regarding treatment she would like to leave medications as they are without increasing them to see if auditory hallucinations resolved on their own, to which production underwriter agrees. She informs production underwriter that she will pace the halls which is her coping mechanism. Otherwise patient is eating and sleeping well. Mental Status Exam Mental Status Exam Narrative: Patient Appearance:?hospital gown Patient Orientation:?Person, Place, Time and Situation Level of Consciousness:?Alert Patient Behavior:?calm, friendly and Good Eye Contact Mood Description:?'good Affect Description:?Constricted Patient Cognition Impaired:?Yes Ability to Follow Directions:?Good Speech Pattern:?Spontaneous Speech Memory Description:?Episodic Impaired Hallucinations:?Auditory Delusions:?Paranoid Ideation and Present Perceptual Disturbances:?Depersonalization and Derealization Thought Process:?Racing, Distracted and Rumination Thought Content:?positive for [place], positive for [place], positive for Circumstantial, positive for Perseveration, Denies SI/HI Judgement:?Fair Diagnostics Vital Signs (24Hr): Vital Signs - 24 hr 05/24/21 18:00 05/25/21 06:00 Temperature 97.4 F 97.3 F Pulse Rate 76 90 Respiratory Rate 16 18 Blood Pressure 132/82 154/83 H Pulse Oximetry 98 BMI result Body Mass Index 41.1 Labs Labs: Laboratory Results - last 48 hr 05/23/21 16:43 Beta HCG, Quant < 2 Medications Medications Current Medications Acetaminophen (Acetaminophen 325 Mg Tablet) 650 mg PO Q6H PRN PRN Reason: Headache/Pain Mild Scale (1-3) Last Admin: 05/22/21 20:30 Dose: 650 mg Documented by: Al Hydroxide/Mg Hydroxide (Magnesium Hydrox/Alum Hydrox 30 Ml Oral.Susp) 30 ml PO Q6H PRN PRN Reason: Heartburn/Nausea Clonazepam (Clonazepam 1 Mg Tablet) 1 mg PO BID [facility] Last Admin: 05/25/21 09:07 Dose: 1 mg Documented by: Gabapentin (Gabapentin 100 Mg Capsule) 100 mg PO BID [facility] Last Admin: 05/25/21 09:07 Dose: 100 mg Documented by: Levothyroxine Sodium (Levothyroxine Sodium 112 Mcg Tablet) 112 mcg PO DAILY@0600 [facility] Last Admin: 05/25/21 05:26 Dose: 112 mcg Documented by: Lorazepam (Lorazepam 0.5 Mg Tablet) 0.5 mg PO Q12H PRN PRN Reason: akathesia Magnesium Hydroxide (Milk Of Magnesia 30 Ml Oral.Susp) 30 ml PO DAILY PRN PRN Reason: Constipation Last Admin: 05/23/21 13:33 Dose: 30 ml Documented by: Melatonin (Melatonin 3 Mg Tablet) 6 mg PO BEDTIME PRN PRN Reason: insomnia Last Admin: 05/24/21 19:58 Dose: 6 mg Documented by: Mirtazapine (Mirtazapine 7.5 Mg Tablet) 7.5 mg PO BEDTIME [facility] Last Admin: 05/24/21 19:56 Dose: 7.5 mg Documented by: Propranolol HCl (Propranolol Hcl 10 Mg Tablet) 10 mg PO TID [facility]; Protocol Last Admin: 05/25/21 14:09 Dose: 10 mg Documented by: Quetiapine Fumarate (Quetiapine Fumarate 100 Mg Tablet) 100 mg PO DAILY [facility] Last Admin: 05/25/21 09:07 Dose: 100 mg Documented by: Quetiapine Fumarate (Quetiapine Fumarate 400 Mg Tablet) 400 mg PO BEDTIME [facility] Last Admin: 05/24/21 19:56 Dose: 400 mg Documented by: Sertraline HCl (Sertraline Hcl 50 Mg Tablet) 150 mg PO DAILY [facility] Last Admin: 05/25/21 09:07 Dose: 150 mg Documented by: Zolpidem Tartrate (Zolpidem Tartrate 5 Mg Tablet) 5 mg PO BEDTIME PRN PRN Reason: Insomnia Last Admin: 05/22/21 23:53 Dose: 5 mg Documented by: Allergies Allergies Allergy/AdvReac Type Severity Reaction Status Date / Time shellfish derived AdvReac Severe Vomiting Verified 05/22/21 19:21 Assessment & Plan Assessment & Plan (1) Severe recurrent major depression w/psychotic features, mood-congruent: Status: Acute Code(s): F33.3 - Major depressive disorder, recurrent, severe with psychotic symptoms Plan 35 yo female, recent discharge from [facility] reporting an increase in depressive sx with SI, HI, AH, VH and paranoia. Plan: Re-establish regime Attempt to treat akathesia Labs, EKG Trileptal 300 mg bid to assist with anxiety, mood mgt. Collateral contacts 05/23/21 Urinary retention- HCG, UA, UC Akathesia-continue propranolol, schedule klonopin, lorazepam prn, low dose Gabapentin, Mirtazapine Discontinue hydroxyzine, benztropine, haldol, taper Trileptal Constipation-monitor Insomnia-continue seroquel, mirtazapine. 05/24 mag citrate x1 otherwise, no changes to regimen 05/25 Reports bothersome AH however does not want change in medication and wants to see if resolves on its own I spent minutes with the patient and/or on the patient floor today, greater than?50% of which was spent counseling/coordinating care. Patient educated on: medication risk/benefits Informed Consent: understands Reason for contiued inpatient stay Substantial Risk for: med/psych decompensation
[2021-05-25 18:00] VITALS: BP 117/78; PULSE 87; RESP 16; TEMP 36.8; O2SAT 98
[2021-05-25] MEDS: QUEtiapine Fumarate 400 MG TABLET PO (19:21)
[2021-05-25] MEDS: Mirtazapine 7.5 MG TABLET PO (19:22)
[2021-05-25] MEDS: Melatonin 3 MG TABLET 6 MG PO (20:12)
[2021-05-26] MEDS: Levothyroxine Sodium 112 MCG TABLET PO (06:56)
[2021-05-26] MEDS: Propranolol HCL 10 MG TABLET PO ×3 (08:59→20:01)
[2021-05-26] MEDS: QUEtiapine Fumarate 100 MG TABLET PO (08:59)
[2021-05-26] MEDS: Sertraline HCL 50 MG TABLET 150 MG PO (09:00)
[2021-05-26] MEDS: Gabapentin 100 MG CAPSULE PO ×2 (09:00→20:01)
[2021-05-26] MEDS: clonazePAM 1 MG TABLET PO ×2 (09:00→20:01)
[2021-05-26 09:02] VITALS: BP 116/74; PULSE 72; RESP 16; TEMP 36.8; O2SAT 98
--- NOTE | 2021-05-26 16:22 | P.PNPSI_ITS ---
Subjective Subjective Date of Service: 05/26/21 Reason For Visit: Major Depressive Disorder Subjective Notes: Conditional Voluntary Healthcare Proxy: No Guardianship: No Medical Problems Affecting Mental Status: No Interim History: Anthony reports an overall decrease in akathesia sx. Reports she is not sleeping at night, but sleeping during the day. This pattern has established over the past few days. Reports anxiety, depression and visual and auditory hallucinations which she believes are stress related. Also reports tooth pain. Constipation has resolved with Magnesium Citrate given over the weekend. Medication Compliance: Yes Side effects from medications: No Attending Groups: Intermittent Review of Systems Acute medical concerns: No Medical Review of Systems: unchanged Review of Systems Reports dental pain Psychiatric: Reports abnormal sleep pattern, Reports anxiety, Reports depression, Reports difficulty concentrating, Reports auditory hallucinations and Reports visual hallucinations Mental Status Exam Mental Status Exam Patient Appearance: Appropriate Patient Orientation: Person, Place, Time and Situation Level of Consciousness: Alert Patient Behavior: Appropriate, Talkative, Cooperative and Good Eye Contact Mood Description: Suspicious, Fearful and Anxious Affect Description: Apprehensive Patient Cognition Impaired: No Ability to Follow Directions: Good Speech Pattern: Spontaneous Speech and Soft-Spoken Memory Description: Episodic Impaired Hallucinations: Auditory and Visual Delusions: Paranoid Ideation Perceptual Disturbances: Depersonalization and Derealization Thought Process: Distracted and Rumination Thought Content: positive for [place] and positive for Perseveration Depressive Symptoms: Increased Anxiety, Insomnia, Difficulty Sleeping and Difficulty Concentrating Abnormal Motor Activity Signs and Symptoms: Restlessness Judgement: Good Diagnostics Vital Signs (24Hr): Vital Signs - 24 hr 05/25/21 18:00 05/26/21 09:02 Temperature 98.2 F 98.2 F Pulse Rate 87 72 Respiratory Rate 16 16 Blood Pressure 117/78 116/74 Pulse Oximetry 98 98 BMI result Body Mass Index 41.1 Medications Medications Current Medications Acetaminophen (Acetaminophen 325 Mg Tablet) 650 mg PO Q6H PRN PRN Reason: Headache/Pain Mild Scale (1-3) Last Admin: 05/22/21 20:30 Dose: 650 mg Documented by: Al Hydroxide/Mg Hydroxide (Magnesium Hydrox/Alum Hydrox 30 Ml Oral.Susp) 30 ml PO Q6H PRN PRN Reason: Heartburn/Nausea Benzocaine (Benzocaine 20 % Oral Gel 9 Gm Tube) 1 appl MUCOUS MEM QID PRN; Protocol PRN Reason: tooth pain Benztropine Mesylate (Benztropine Mesylate 0.5 Mg Tablet) 0.5 mg PO BEDTIME [facility] Clonazepam (Clonazepam 1 Mg Tablet) 1 mg PO BID [facility] Last Admin: 05/26/21 09:00 Dose: 1 mg Documented by: Gabapentin (Gabapentin 100 Mg Capsule) 100 mg PO BID [facility] Last Admin: 05/26/21 09:00 Dose: 100 mg Documented by: Levothyroxine Sodium (Levothyroxine Sodium 112 Mcg Tablet) 112 mcg PO DAILY@0600 [facility] Last Admin: 05/26/21 06:56 Dose: 112 mcg Documented by: Lorazepam (Lorazepam 0.5 Mg Tablet) 0.5 mg PO Q12H PRN PRN Reason: akathesia Magnesium Hydroxide (Milk Of Magnesia 30 Ml Oral.Susp) 30 ml PO DAILY PRN PRN Reason: Constipation Last Admin: 05/23/21 13:33 Dose: 30 ml Documented by: Melatonin (Melatonin 3 Mg Tablet) 6 mg PO BEDTIME PRN PRN Reason: insomnia Last Admin: 05/25/21 20:12 Dose: 6 mg Documented by: Mirtazapine (Mirtazapine 15 Mg Tablet) 15 mg PO BEDTIME [facility] Propranolol HCl (Propranolol Hcl 10 Mg Tablet) 10 mg PO TID [facility]; Protocol Last Admin: 05/26/21 16:15 Dose: 10 mg Documented by: Quetiapine Fumarate (Quetiapine Fumarate 100 Mg Tablet) 100 mg PO DAILY [facility] Last Admin: 05/26/21 08:59 Dose: 100 mg Documented by: Quetiapine Fumarate (Quetiapine Fumarate 400 Mg Tablet) 400 mg PO BEDTIME [facility] Last Admin: 05/25/21 19:21 Dose: 400 mg Documented by: Sertraline HCl (Sertraline Hcl 50 Mg Tablet) 150 mg PO DAILY [facility] Last Admin: 05/26/21 09:00 Dose: 150 mg Documented by: Allergies Allergies Allergy/AdvReac Type Severity Reaction Status Date / Time shellfish derived AdvReac Severe Vomiting Verified 05/22/21 19:21 Assessment & Plan Assessment & Plan (1) Severe recurrent major depression w/psychotic features, mood-congruent: Status: Acute Code(s): F33.3 - Major depressive disorder, recurrent, severe with psychotic symptoms Plan 35 yo female, recent discharge from [facility] reporting an increase in depressive sx with SI, HI, AH, VH and paranoia. Plan: Re-establish regime Attempt to treat akathesia Labs, EKG Trileptal 300 mg bid to assist with anxiety, mood mgt. Collateral contacts 05/23/21 Urinary retention- HCG, UA, UC Akathesia-continue propranolol, schedule klonopin, lorazepam prn, low dose Gabapentin, Mirtazapine Discontinue hydroxyzine, benztropine, haldol, taper Trileptal Constipation-monitor Insomnia-continue seroquel, mirtazapine. 05/24 mag citrate x1 otherwise, no changes to regimen 05/25 Reports bothersome AH however does not want change in medication and wants to see if resolves on its own 05/26/21 Discontinue Ambien Increase Mirtazapine to 15 mg HS to address sleep, anxiety, depressive sx. Anbesol prn for dental pain Benztropine 0.5 mg HS I spent minutes with the patient and/or on the patient floor today, greater than?50% of which was spent counseling/coordinating care. Patient educated on: medication risk/benefits and therapeutic strategies Informed Consent: further education needed Reason for contiued inpatient stay Substantial Risk for: harm to self, inability to function and rapid decompensation
[2021-05-26 18:16] VITALS: BP 156/85; PULSE 75; RESP 17; TEMP 37.2; O2SAT 98
[2021-05-26] MEDS: Magnesium Hydrox/Alum Hydrox 30 ML ORAL.SUSP PO (18:53)
[2021-05-26] MEDS: Acetaminophen 325 MG TABLET 650 MG PO (18:53)
[2021-05-26] MEDS: Benztropine Mesylate 0.5 MG TABLET PO (20:01)
[2021-05-26] MEDS: QUEtiapine Fumarate 400 MG TABLET PO (20:01)
[2021-05-26] MEDS: Melatonin 3 MG TABLET 6 MG PO (20:01)
[2021-05-26] MEDS: Mirtazapine 15 MG TABLET PO (20:01)
[2021-05-27 06:00] VITALS: BP 121/82; PULSE 80; RESP 18; TEMP 36.7; O2SAT 97
[2021-05-27] MEDS: Levothyroxine Sodium 112 MCG TABLET PO (06:11)
[2021-05-27] MEDS: Sertraline HCL 50 MG TABLET 150 MG PO (08:33)
[2021-05-27] MEDS: clonazePAM 1 MG TABLET PO ×2 (08:34→20:45)
[2021-05-27] MEDS: Gabapentin 100 MG CAPSULE PO ×2 (08:34→20:44)
[2021-05-27] MEDS: QUEtiapine Fumarate 100 MG TABLET PO (08:34)
[2021-05-27] MEDS: Propranolol HCL 10 MG TABLET PO ×3 (08:34→20:44)
[2021-05-27] MEDS: Acetaminophen 325 MG TABLET 650 MG PO (15:58)
--- NOTE | 2021-05-27 16:06 | HO.PSYCHPN ---
Subjective Subjective Date of Service: 05/27/21 Reason For Visit: Major Depressive Disorder Subjective Notes: Conditional Voluntary Healthcare Proxy: No Guardianship: No Medical Problems Affecting Mental Status: No Interim History: Anthony asks you are not going to send me home are you.? I cannot sleep, I am hearing voices, my anxiety is too high and I have those thoughts that intrude. Anthony reports she is feeling improved. She is tolerating her medication regime, reports a significant decrease in akathesia sx that she was admitted with. We will continue current plan today. There are clearly issues with going home. Her partner has not returned our calls and she becomes significantly anxious when talking with tw about her discharge planning.... I cannot (tearful) Medication Compliance: Yes Side effects from medications: No (akathesia resolving) Attending Groups: Intermittent Review of Systems Acute medical concerns: No Medical Review of Systems: unchanged Review of Systems Reports dental pain Psychiatric: Reports abnormal sleep pattern, Reports anxiety, Reports depression, Reports difficulty concentrating, Reports auditory hallucinations and Reports visual hallucinations Mental Status Exam Mental Status Exam Patient Appearance: Appropriate Patient Orientation: Person, Place, Time and Situation Level of Consciousness: Alert Patient Behavior: Appropriate, Talkative, Cooperative and Good Eye Contact Mood Description: Suspicious, Fearful and Anxious Affect Description: Apprehensive Patient Cognition Impaired: No Ability to Follow Directions: Good Speech Pattern: Spontaneous Speech and Soft-Spoken Memory Description: Episodic Impaired Hallucinations: Auditory and Visual Delusions: Paranoid Ideation Perceptual Disturbances: Depersonalization and Derealization Thought Process: Distracted and Rumination Thought Content: positive for [place] and positive for [place] Depressive Symptoms: Increased Anxiety, Insomnia, Difficulty Sleeping and Difficulty Concentrating Abnormal Motor Activity Signs and Symptoms: Restlessness Judgement: Good Diagnostics Vital Signs (24Hr): Vital Signs - 24 hr 05/26/21 18:16 05/27/21 06:00 Temperature 99.0 F 98.0 F Pulse Rate 75 80 Respiratory Rate 17 18 Blood Pressure 156/85 H 121/82 Pulse Oximetry 98 97 BMI result Body Mass Index 41.1 Medications Medications Current Medications Acetaminophen (Acetaminophen 325 Mg Tablet) 650 mg PO Q6H PRN PRN Reason: Headache/Pain Mild Scale (1-3) Last Admin: 05/27/21 15:58 Dose: 650 mg Documented by: Al Hydroxide/Mg Hydroxide (Magnesium Hydrox/Alum Hydrox 30 Ml Oral.Susp) 30 ml PO Q6H PRN PRN Reason: Heartburn/Nausea Last Admin: 05/26/21 18:53 Dose: 30 ml Documented by: Benzocaine (Benzocaine 20 % Oral Gel 9 Gm Tube) 1 appl MUCOUS MEM QID PRN; Protocol PRN Reason: tooth pain Benztropine Mesylate (Benztropine Mesylate 0.5 Mg Tablet) 0.5 mg PO BEDTIME [facility] Last Admin: 05/26/21 20:01 Dose: 0.5 mg Documented by: Clonazepam (Clonazepam 1 Mg Tablet) 1 mg PO BID [facility] Last Admin: 05/27/21 08:34 Dose: 1 mg Documented by: Gabapentin (Gabapentin 100 Mg Capsule) 100 mg PO BID [facility] Last Admin: 05/27/21 08:34 Dose: 100 mg Documented by: Levothyroxine Sodium (Levothyroxine Sodium 112 Mcg Tablet) 112 mcg PO DAILY@0600 [facility] Last Admin: 05/27/21 06:11 Dose: 112 mcg Documented by: Lorazepam (Lorazepam 0.5 Mg Tablet) 0.5 mg PO Q12H PRN PRN Reason: akathesia Magnesium Hydroxide (Milk Of Magnesia 30 Ml Oral.Susp) 30 ml PO DAILY PRN PRN Reason: Constipation Last Admin: 05/23/21 13:33 Dose: 30 ml Documented by: Melatonin (Melatonin 3 Mg Tablet) 6 mg PO BEDTIME PRN PRN Reason: insomnia Last Admin: 05/26/21 20:01 Dose: 6 mg Documented by: Mirtazapine (Mirtazapine 15 Mg Tablet) 15 mg PO BEDTIME [facility] Last Admin: 05/26/21 20:01 Dose: 15 mg Documented by: Propranolol HCl (Propranolol Hcl 10 Mg Tablet) 10 mg PO TID [facility]; Protocol Last Admin: 05/27/21 15:59 Dose: 10 mg Documented by: Quetiapine Fumarate (Quetiapine Fumarate 100 Mg Tablet) 100 mg PO DAILY [facility] Last Admin: 05/27/21 08:34 Dose: 100 mg Documented by: Quetiapine Fumarate (Quetiapine Fumarate 400 Mg Tablet) 400 mg PO BEDTIME [facility] Last Admin: 05/26/21 20:01 Dose: 400 mg Documented by: Sertraline HCl (Sertraline Hcl 50 Mg Tablet) 150 mg PO DAILY [facility] Last Admin: 05/27/21 08:33 Dose: 150 mg Documented by: Allergies Allergies Allergy/AdvReac Type Severity Reaction Status Date / Time shellfish derived AdvReac Severe Vomiting Verified 05/22/21 19:21 Assessment & Plan Assessment & Plan (1) Severe recurrent major depression w/psychotic features, mood-congruent: Status: Acute Code(s): F33.3 - Major depressive disorder, recurrent, severe with psychotic symptoms Plan 35 yo female, recent discharge from [facility] reporting an increase in depressive sx with SI, HI, AH, VH and paranoia. Plan: Re-establish regime Attempt to treat akathesia Labs, EKG Trileptal 300 mg bid to assist with anxiety, mood mgt. Collateral contacts 05/23/21 Urinary retention- HCG, UA, UC Akathesia-continue propranolol, schedule klonopin, lorazepam prn, low dose Gabapentin, Mirtazapine Discontinue hydroxyzine, benztropine, haldol, taper Trileptal Constipation-monitor Insomnia-continue seroquel, mirtazapine. 05/24 mag citrate x1 otherwise, no changes to regimen 05/25 Reports bothersome AH however does not want change in medication and wants to see if resolves on its own 05/26/21 Discontinue Ambien Increase Mirtazapine to 15 mg HS to address sleep, anxiety, depressive sx. Anbesol prn for dental pain Benztropine 0.5 mg HS 05/27/21 Continue current plan of care. Discharge planning I spent minutes with the patient and/or on the patient floor today, greater than?50% of which was spent counseling/coordinating care. Patient educated on: medication risk/benefits and therapeutic strategies Informed Consent: further education needed Reason for contiued inpatient stay Substantial Risk for: inability to function, rapid decompensation and med/psych decompensation
[2021-05-27 18:00] VITALS: BP 172/77; PULSE 89; TEMP 36.7
[2021-05-27] MEDS: Benztropine Mesylate 0.5 MG TABLET PO (20:43)
[2021-05-27] MEDS: Melatonin 3 MG TABLET 6 MG PO (20:43)
[2021-05-27] MEDS: QUEtiapine Fumarate 400 MG TABLET PO (20:44)
[2021-05-27] MEDS: Mirtazapine 15 MG TABLET PO (20:44)
[2021-05-28] MEDS: Levothyroxine Sodium 112 MCG TABLET PO (06:52)
[2021-05-28] MEDS: Gabapentin 100 MG CAPSULE PO ×2 (08:29→20:04)
[2021-05-28] MEDS: clonazePAM 1 MG TABLET PO ×2 (08:29→20:04)
[2021-05-28] MEDS: Sertraline HCL 50 MG TABLET 150 MG PO (08:29)
[2021-05-28 08:30] VITALS: BP 138/90; PULSE 98; RESP 18; O2SAT 98
[2021-05-28] MEDS: Propranolol HCL 10 MG TABLET PO ×3 (08:30→20:04)
[2021-05-28] MEDS: QUEtiapine Fumarate 100 MG TABLET PO (08:30)
[2021-05-28 14:29] VITALS: BP 147/79; PULSE 84
--- NOTE | 2021-05-28 16:59 | HO.PSYCHPN ---
Subjective Subjective Date of Service: 05/28/21 Reason For Visit: Major Depressive Disorder Subjective Notes: Conditional Voluntary Healthcare Proxy: No Guardianship: No Medical Problems Affecting Mental Status: No Interim History: There is so much negativity in the house, I just cannot live there. I would like to take the kids and live alone. Anthony started by attending some groups this a.m. She reports she found the skill group to help her. Discussed symptoms-discussed her not wanting to be in their marriage any longer and he tells me I am not the same person. Reports auditory and visual perceptual alterations-hears scratching, sees black shadows in her peripheral vision. Medication Compliance: Yes Side effects from medications: No Attending Groups: Yes Review of Systems Acute medical concerns: No Medical Review of Systems: unchanged Review of Systems Reports dental pain Psychiatric: Reports abnormal sleep pattern, Reports anxiety, Reports depression, Reports difficulty concentrating, Reports auditory hallucinations and Reports visual hallucinations Mental Status Exam Mental Status Exam Patient Appearance: Appropriate Patient Orientation: Person, Place, Time and Situation Level of Consciousness: Alert Patient Behavior: Appropriate, Talkative, Cooperative and Good Eye Contact Mood Description: Suspicious, Fearful and Anxious Affect Description: Apprehensive Patient Cognition Impaired: No Ability to Follow Directions: Good Speech Pattern: Spontaneous Speech and Soft-Spoken Memory Description: Episodic Impaired Hallucinations: Auditory and Visual Delusions: Paranoid Ideation Perceptual Disturbances: Depersonalization and Derealization Thought Process: Distracted and Rumination Thought Content: positive for [place] and positive for [place]sever[place] Depressive Symptoms: Increased Anxiety, Insomnia, Difficulty Sleeping and Difficulty Concentrating Abnormal Motor Activity Signs and Symptoms: Restlessness Judgement: Good Diagnostics Vital Signs (24Hr): Vital Signs - 24 hr 05/27/21 18:00 05/28/21 08:30 05/28/21 14:29 Temperature 98.0 F Pulse Rate 89 98 84 Respiratory Rate 18 Blood Pressure 172/77 H 138/90 H 147/79 H Pulse Oximetry 98 BMI result Body Mass Index 41.1 Medications Medications Current Medications Acetaminophen (Acetaminophen 325 Mg Tablet) 650 mg PO Q6H PRN PRN Reason: Headache/Pain Mild Scale (1-3) Last Admin: 05/27/21 15:58 Dose: 650 mg Documented by: Al Hydroxide/Mg Hydroxide (Magnesium Hydrox/Alum Hydrox 30 Ml Oral.Susp) 30 ml PO Q6H PRN PRN Reason: Heartburn/Nausea Last Admin: 05/26/21 18:53 Dose: 30 ml Documented by: Benzocaine (Benzocaine 20 % Oral Gel 9 Gm Tube) 1 appl MUCOUS MEM QID PRN; Protocol PRN Reason: tooth pain Benztropine Mesylate (Benztropine Mesylate 0.5 Mg Tablet) 0.5 mg PO BEDTIME [facility] Last Admin: 05/27/21 20:43 Dose: 0.5 mg Documented by: Clonazepam (Clonazepam 1 Mg Tablet) 1 mg PO BID [facility] Last Admin: 05/28/21 08:29 Dose: 1 mg Documented by: Gabapentin (Gabapentin 100 Mg Capsule) 100 mg PO BID [facility] Last Admin: 05/28/21 08:29 Dose: 100 mg Documented by: Levothyroxine Sodium (Levothyroxine Sodium 112 Mcg Tablet) 112 mcg PO DAILY@0600 [facility] Last Admin: 05/28/21 06:52 Dose: 112 mcg Documented by: Magnesium Hydroxide (Milk Of Magnesia 30 Ml Oral.Susp) 30 ml PO DAILY PRN PRN Reason: Constipation Last Admin: 05/23/21 13:33 Dose: 30 ml Documented by: Melatonin (Melatonin 3 Mg Tablet) 6 mg PO BEDTIME PRN PRN Reason: insomnia Last Admin: 05/27/21 20:43 Dose: 6 mg Documented by: Mirtazapine (Mirtazapine 15 Mg Tablet) 15 mg PO BEDTIME [facility] Last Admin: 05/27/21 20:44 Dose: 15 mg Documented by: Propranolol HCl (Propranolol Hcl 10 Mg Tablet) 10 mg PO TID [facility]; Protocol Last Admin: 05/28/21 14:25 Dose: 10 mg Documented by: Quetiapine Fumarate (Quetiapine Fumarate 100 Mg Tablet) 100 mg PO DAILY [facility] Last Admin: 05/28/21 08:30 Dose: 100 mg Documented by: Quetiapine Fumarate (Quetiapine Fumarate 400 Mg Tablet) 400 mg PO BEDTIME [facility] Last Admin: 05/27/21 20:44 Dose: 400 mg Documented by: Sertraline HCl (Sertraline Hcl 50 Mg Tablet) 150 mg PO DAILY [facility] Last Admin: 05/28/21 08:29 Dose: 150 mg Documented by: Allergies Allergies Allergy/AdvReac Type Severity Reaction Status Date / Time shellfish derived AdvReac Severe Vomiting Verified 05/22/21 19:21 Assessment & Plan Assessment & Plan (1) Severe recurrent major depression w/psychotic features, mood-congruent: Status: Acute Code(s): F33.3 - Major depressive disorder, recurrent, severe with psychotic symptoms Plan 35 yo female, recent discharge from [facility] reporting an increase in depressive sx with SI, HI, AH, VH and paranoia. Plan: Re-establish regime Attempt to treat akathesia Labs, EKG Trileptal 300 mg bid to assist with anxiety, mood mgt. Collateral contacts 05/23/21 Urinary retention- HCG, UA, UC Akathesia-continue propranolol, schedule klonopin, lorazepam prn, low dose Gabapentin, Mirtazapine Discontinue hydroxyzine, benztropine, haldol, taper Trileptal Constipation-monitor Insomnia-continue seroquel, mirtazapine. 05/24 mag citrate x1 otherwise, no changes to regimen 05/25 Reports bothersome AH however does not want change in medication and wants to see if resolves on its own 05/26/21 Discontinue Ambien Increase Mirtazapine to 15 mg HS to address sleep, anxiety, depressive sx. Anbesol prn for dental pain Benztropine 0.5 mg HS 05/28/21 Continue current regime Process concerns at home-encourage groups, individual work to begin to plan for her future. I spent minutes with the patient and/or on the patient floor today, greater than?50% of which was spent counseling/coordinating care. Patient educated on: therapeutic strategies Informed Consent: further education needed Reason for contiued inpatient stay Substantial Risk for: inability to function and rapid decompensation
[2021-05-28 18:00] VITALS: BP 152/86; PULSE 98; RESP 16; TEMP 36.1
[2021-05-28] MEDS: Acetaminophen 325 MG TABLET 650 MG PO (18:52)
[2021-05-28] MEDS: Melatonin 3 MG TABLET 6 MG PO (20:04)
[2021-05-28] MEDS: Mirtazapine 15 MG TABLET PO (20:04)
[2021-05-28] MEDS: QUEtiapine Fumarate 400 MG TABLET PO (20:04)
[2021-05-28] MEDS: Benztropine Mesylate 0.5 MG TABLET PO (20:04)
[2021-05-29] MEDS: Levothyroxine Sodium 112 MCG TABLET PO (06:18)
[2021-05-29 08:43] VITALS: BP 143/88; PULSE 99; TEMP 37.2
[2021-05-29] MEDS: Sertraline HCL 50 MG TABLET 150 MG PO (08:58)
[2021-05-29] MEDS: QUEtiapine Fumarate 100 MG TABLET PO (08:59)
[2021-05-29] MEDS: Propranolol HCL 10 MG TABLET PO ×3 (08:59→20:08)
[2021-05-29] MEDS: Gabapentin 100 MG CAPSULE PO ×2 (08:59→20:07)
[2021-05-29] MEDS: clonazePAM 1 MG TABLET PO ×2 (08:59→20:07)
--- NOTE | 2021-05-29 13:37 | P.PNPSI_ITS ---
Subjective Subjective Date of Service: 05/29/21 Reason For Visit: Major Depressive Disorder Subjective Notes: Conditional Voluntary Healthcare Proxy: No Guardianship: No Medical Problems Affecting Mental Status: No Interim History: Please do not sent me home. Pt, upon initiation of meeting becomes significantly anxious, reporting anxiety, depression, voices feeling unsafe and asks that we not send her home. Discussed with Anthony why she does not want to go home. She responds that she cannot tolerate the stress of the house, her and the chaos. Encouraged to attend group, to meet with her contact representative, to work with her social media community manager on [employer] application. Asked if we could contact family for their input. She agrees and states her sister Gianna may have ideas to help her. She does not have Gianna's number, however, she gave her brother Maximo' number who will give us Gianna's number. Call to Maximo [phone] was an incorrect number. Discussed with pt what she needs to do to feel safe at home. She responded, I need to leave. Medication Compliance: Yes Side effects from medications: No (akathesia is improved) Attending Groups: No Review of Systems Acute medical concerns: No Medical Review of Systems: unchanged Review of Systems Reports dental pain Psychiatric: Reports abnormal sleep pattern, Reports anxiety, Reports depression, Reports difficulty concentrating, Reports auditory hallucinations and Reports visual hallucinations Mental Status Exam Mental Status Exam Patient Appearance: Appropriate Patient Orientation: Person, Place, Time and Situation Level of Consciousness: Alert Patient Behavior: Appropriate, Talkative, Cooperative and Good Eye Contact Mood Description: Suspicious, Fearful and Anxious Affect Description: Apprehensive Patient Cognition Impaired: No Ability to Follow Directions: Good Speech Pattern: Spontaneous Speech and Soft-Spoken Memory Description: Episodic Impaired Hallucinations: Auditory and Visual Delusions: Paranoid Ideation Perceptual Disturbances: Depersonalization and Derealization Thought Process: Distracted and Rumination Thought Content: positive for [place] and positive for [place] Depressive Symptoms: Increased Anxiety, Insomnia, Difficulty Sleeping and Difficulty Concentrating Abnormal Motor Activity Signs and Symptoms: Restlessness Judgement: Good Diagnostics Vital Signs (24Hr): Vital Signs - 24 hr 05/28/21 14:29 05/28/21 18:00 05/29/21 08:43 Temperature 97 F 98.9 F Pulse Rate 84 98 99 Respiratory Rate 16 Blood Pressure 147/79 H 152/86 H 143/88 H BMI result Body Mass Index 41.1 Medications Medications Current Medications Acetaminophen (Acetaminophen 325 Mg Tablet) 650 mg PO Q6H PRN PRN Reason: Headache/Pain Mild Scale (1-3) Last Admin: 05/28/21 18:52 Dose: 650 mg Documented by: Al Hydroxide/Mg Hydroxide (Magnesium Hydrox/Alum Hydrox 30 Ml Oral.Susp) 30 ml PO Q6H PRN PRN Reason: Heartburn/Nausea Last Admin: 05/26/21 18:53 Dose: 30 ml Documented by: Benzocaine (Benzocaine 20 % Oral Gel 9 Gm Tube) 1 appl MUCOUS MEM QID PRN; Protocol PRN Reason: tooth pain Benztropine Mesylate (Benztropine Mesylate 0.5 Mg Tablet) 0.5 mg PO BEDTIME [facility] Last Admin: 05/28/21 20:04 Dose: 0.5 mg Documented by: Clonazepam (Clonazepam 1 Mg Tablet) 1 mg PO BID [facility] Last Admin: 05/29/21 08:59 Dose: 1 mg Documented by: Gabapentin (Gabapentin 100 Mg Capsule) 100 mg PO BID [facility] Last Admin: 05/29/21 08:59 Dose: 100 mg Documented by: Levothyroxine Sodium (Levothyroxine Sodium 112 Mcg Tablet) 112 mcg PO DAILY@0600 [facility] Last Admin: 05/29/21 06:18 Dose: 112 mcg Documented by: Magnesium Hydroxide (Milk Of Magnesia 30 Ml Oral.Susp) 30 ml PO DAILY PRN PRN Reason: Constipation Last Admin: 05/23/21 13:33 Dose: 30 ml Documented by: Melatonin (Melatonin 3 Mg Tablet) 6 mg PO BEDTIME PRN PRN Reason: insomnia Last Admin: 05/28/21 20:04 Dose: 6 mg Documented by: Mirtazapine (Mirtazapine 15 Mg Tablet) 15 mg PO BEDTIME [facility] Last Admin: 05/28/21 20:04 Dose: 15 mg Documented by: Propranolol HCl (Propranolol Hcl 10 Mg Tablet) 10 mg PO TID [facility]; Protocol Last Admin: 05/29/21 08:59 Dose: 10 mg Documented by: Quetiapine Fumarate (Quetiapine Fumarate 100 Mg Tablet) 100 mg PO DAILY [facility] Last Admin: 05/29/21 08:59 Dose: 100 mg Documented by: Quetiapine Fumarate (Quetiapine Fumarate 400 Mg Tablet) 400 mg PO BEDTIME [facility] Last Admin: 05/28/21 20:04 Dose: 400 mg Documented by: Sertraline HCl (Sertraline Hcl 50 Mg Tablet) 150 mg PO DAILY [facility] Last Admin: 05/29/21 08:58 Dose: 150 mg Documented by: Allergies Allergies Allergy/AdvReac Type Severity Reaction Status Date / Time shellfish derived AdvReac Severe Vomiting Verified 05/22/21 19:21 Assessment & Plan Assessment & Plan (1) Severe recurrent major depression w/psychotic features, mood-congruent: Status: Acute Code(s): F33.3 - Major depressive disorder, recurrent, severe with psychotic symptoms Plan 35 yo female, recent discharge from [facility] reporting an increase in de pressive sx with SI, HI, AH, VH and paranoia. Plan: Re-establish regime Attempt to treat akathesia Labs, EKG Trileptal 300 mg bid to assist with anxiety, mood mgt. Collateral contacts 05/23/21 Urinary retention- HCG, UA, UC Akathesia-continue propranolol, schedule klonopin, lorazepam prn, low dose Gabapentin, Mirtazapine Discontinue hydroxyzine, benztropine, haldol, taper Trileptal Constipation-monitor Insomnia-continue seroquel, mirtazapine. 05/24 mag citrate x1 otherwise, no changes to regimen 05/25 Reports bothersome AH however does not want change in medication and wants to see if resolves on its own 05/26/21 Discontinue Ambien Increase Mirtazapine to 15 mg HS to address sleep, anxiety, depressive sx. Anbesol prn for dental pain Benztropine 0.5 mg HS 05/28/21 Continue current regime Process concerns at home-encourage groups, individual work to begin to plan for her future. 05/29/21 Perphenazine prn for perceptual alterations. I spent minutes with the patient and/or on the patient floor today, greater than?50% of which was spent counseling/coordinating care. Patient educated on: therapeutic strategies Informed Consent: further education needed Reason for contiued inpatient stay Substantial Risk for: inability to function and rapid decompensation
[2021-05-29 17:13] VITALS: BP 139/67; PULSE 90; RESP 18; O2SAT 99
[2021-05-29] MEDS: Acetaminophen 325 MG TABLET 650 MG PO (19:35)
[2021-05-29] MEDS: QUEtiapine Fumarate 400 MG TABLET PO (20:07)
[2021-05-29] MEDS: Mirtazapine 15 MG TABLET PO (20:07)
[2021-05-29] MEDS: Benztropine Mesylate 0.5 MG TABLET PO (20:08)
[2021-05-29] MEDS: Melatonin 3 MG TABLET 6 MG PO (20:13)
[2021-05-30] MEDS: Levothyroxine Sodium 112 MCG TABLET PO (05:33)
[2021-05-30 08:30] VITALS: BP 131/63; PULSE 91; TEMP 36.3
[2021-05-30] MEDS: Propranolol HCL 10 MG TABLET PO ×3 (09:06→20:25)
[2021-05-30] MEDS: Sertraline HCL 50 MG TABLET 150 MG PO (09:06)
[2021-05-30] MEDS: QUEtiapine Fumarate 100 MG TABLET PO (09:06)
[2021-05-30] MEDS: clonazePAM 1 MG TABLET PO ×2 (09:07→19:34)
[2021-05-30] MEDS: Gabapentin 100 MG CAPSULE PO ×2 (09:07→19:35)
--- NOTE | 2021-05-30 15:40 | P.PNPSI_ITS ---
Subjective Subjective Date of Service: 05/30/21 Reason For Visit: Major Depressive Disorder Subjective Notes: Conditional Voluntary Healthcare Proxy: No Guardianship: No Medical Problems Affecting Mental Status: No Interim History: nAthony discussed how difficult it will be to go home. She is unable to give team any contact info for family so we can assess other options with her at this time. Discussed symptoms of nightmares and poor quality of rest. She is more visable on the unit and participates although on the peripherie. Discussed family and their treatment of her regarding being a bad mother Medication Compliance: Yes Side effects from medications: No Attending Groups: Yes Review of Systems Acute medical concerns: No Medical Review of Systems: unchanged Review of Systems Reports dental pain Psychiatric: Reports abnormal sleep pattern, Reports anxiety, Reports depression, Reports difficulty concentrating, Reports auditory hallucinations and Reports visual hallucinations Mental Status Exam Mental Status Exam Patient Appearance: Appropriate Patient Orientation: Person, Place, Time and Situation Level of Consciousness: Alert Patient Behavior: Appropriate, Talkative, Cooperative and Good Eye Contact Mood Description: Suspicious, Fearful and Anxious Affect Description: Apprehensive Patient Cognition Impaired: No Ability to Follow Directions: Good Speech Pattern: Spontaneous Speech and Soft-Spoken Memory Description: Episodic Impaired Hallucinations: Auditory and Visual Delusions: Paranoid Ideation Perceptual Disturbances: Depersonalization and Derealization Thought Process: Distracted and Rumination Thought Content: positive for [place] and positive for Perseveration Depressive Symptoms: Increased Anxiety, Insomnia, Difficulty Sleeping and Difficulty Concentrating Abnormal Motor Activity Signs and Symptoms: Restlessness Judgement: Good Diagnostics Vital Signs (24Hr): Vital Signs - 24 hr 05/29/21 17:13 05/30/21 08:30 Temperature 97.3 F Pulse Rate 90 91 Respiratory Rate 18 Blood Pressure 139/67 131/63 Pulse Oximetry 99 BMI result Body Mass Index 41.1 Medications Medications Current Medications Acetaminophen (Acetaminophen 325 Mg Tablet) 650 mg PO Q6H PRN PRN Reason: Headache/Pain Mild Scale (1-3) Last Admin: 05/29/21 19:35 Dose: 650 mg Documented by: Al Hydroxide/Mg Hydroxide (Magnesium Hydrox/Alum Hydrox 30 Ml Oral.Susp) 30 ml PO Q6H PRN PRN Reason: Heartburn/Nausea Last Admin: 05/26/21 18:53 Dose: 30 ml Documented by: Benzocaine (Benzocaine 20 % Oral Gel 9 Gm Tube) 1 appl MUCOUS MEM QID PRN; Protocol PRN Reason: tooth pain Benztropine Mesylate (Benztropine Mesylate 0.5 Mg Tablet) 0.5 mg PO BEDTIME [facility] Last Admin: 05/29/21 20:08 Dose: 0.5 mg Documented by: Clonazepam (Clonazepam 1 Mg Tablet) 1 mg PO BID [facility] Last Admin: 05/30/21 09:07 Dose: 1 mg Documented by: Gabapentin (Gabapentin 100 Mg Capsule) 100 mg PO BID [facility] Last Admin: 05/30/21 09:07 Dose: 100 mg Documented by: Levothyroxine Sodium (Levothyroxine Sodium 112 Mcg Tablet) 112 mcg PO DAILY@0600 [facility] Last Admin: 05/30/21 05:33 Dose: 112 mcg Documented by: Magnesium Hydroxide (Milk Of Magnesia 30 Ml Oral.Susp) 30 ml PO DAILY PRN PRN Reason: Constipation Last Admin: 05/23/21 13:33 Dose: 30 ml Documented by: Melatonin (Melatonin 3 Mg Tablet) 6 mg PO BEDTIME PRN PRN Reason: insomnia Last Admin: 05/29/21 20:13 Dose: 6 mg Documented by: Mirtazapine (Mirtazapine 15 Mg Tablet) 15 mg PO BEDTIME [facility] Last Admin: 05/29/21 20:07 Dose: 15 mg Documented by: Perphenazine (Perphenazine 4 Mg Tablet) 4 mg PO TID PRN PRN Reason: auditory perceptual alterations Propranolol HCl (Propranolol Hcl 10 Mg Tablet) 10 mg PO TID [facility]; Protocol Last Admin: 05/30/21 09:06 Dose: 10 mg Documented by: Quetiapine Fumarate (Quetiapine Fumarate 100 Mg Tablet) 100 mg PO DAILY [facility] Last Admin: 05/30/21 09:06 Dose: 100 mg Documented by: Quetiapine Fumarate (Quetiapine Fumarate 400 Mg Tablet) 400 mg PO BEDTIME [facility] Last Admin: 05/29/21 20:07 Dose: 400 mg Documented by: Sertraline HCl (Sertraline Hcl 50 Mg Tablet) 150 mg PO DAILY [facility] Last Admin: 05/30/21 09:06 Dose: 150 mg Documented by: Allergies Allergies Allergy/AdvReac Type Severity Reaction Status Date / Time shellfish derived AdvReac Severe Vomiting Verified 05/22/21 19:21 Assessment & Plan Assessment & Plan (1) Severe recurrent major depression w/psychotic features, mood-congruent: Status: Acute Code(s): F33.3 - Major depressive disorder, recurrent, severe with psychotic symptoms Plan 35 yo female, recent discharge from [facility] reporting an increase in depressive sx with SI, HI, AH, VH and paranoia. Plan: Re-establish regime Attempt to treat akathesia Labs, EKG Trileptal 300 mg bid to assist with anxiety, mood mgt. Collateral contacts 05/23/21 Urinary retention- HCG, UA, UC Akathesia-continue propranolol, schedule klonopin, lorazepam prn, low dose Gabapentin, Mirtazapine Discontinue hydroxyzine, benztropine, haldol, taper Trileptal Constipation-monitor Insomnia-continue seroquel, mirtazapine. 05/24 mag citrate x1 otherwise, no changes to regimen 05/25 Reports bothersome AH however does not want change in medication and wants to see if resolves on its own 05/26/21 Discontinue Ambien Increase Mirtazapine to 15 mg HS to address sleep, anxiety, depressive sx. Anbesol prn for dental pain Benztropine 0.5 mg HS 05/28/21 Continue current regime Process concerns at home-encourage groups, individual work to begin to plan for her future. 05/29/21 Perphenazine prn for perceptual alterations. 05/30/21 Prazosin 1 mg hs Consolidate Seroquel to 500 mg HS. Discontinue a.m. dosing I spent minutes with the patient and/or on the patient floor today, greater than?50% of which was spent counseling/coordinating care. Patient educated on: medication risk/benefits and therapeutic strategies Informed Consent: understands and further education needed Reason for contiued inpatient stay Substantial Risk for: inability to function and rapid decompensation
[2021-05-30 18:00] VITALS: BP 132/87; PULSE 98; RESP 16; TEMP 36.6; O2SAT 98
[2021-05-30] MEDS: Mirtazapine 15 MG TABLET PO (19:34)
[2021-05-30] MEDS: QUEtiapine Fumarate 100 MG TABLET 500 MG PO (19:34)
[2021-05-30] MEDS: Benztropine Mesylate 0.5 MG TABLET PO (19:34)
[2021-05-30] MEDS: Prazosin HCL 1 MG CAPSULE PO (19:35)
[2021-05-30] MEDS: Melatonin 3 MG TABLET 6 MG PO (20:16)
[2021-05-30] MEDS: Acetaminophen 325 MG TABLET 650 MG PO (21:13)
[2021-05-31] MEDS: Levothyroxine Sodium 112 MCG TABLET PO (06:28)
--- NOTE | 2021-05-31 08:42 | HO.PSYCHPN ---
Subjective Subjective Date of Service: 05/31/21 Reason For Visit: Major Depressive Disorder Subjective Notes: Conditional Voluntary Healthcare Proxy: No Guardianship: No Interim History: Patient was seen and discussed in rounds today. She continues to be isolative, having some auditory hallucinations. For the most part she is pleasant. She is at times anxious and pacing. Hallucinations have been command at times. No active suicidal or homicidal ideations. Eating and sleeping adequately. No changes were made today Medication Compliance: Yes Side effects from medications: No Review of Systems Reports dental pain Psychiatric: Reports abnormal sleep pattern, Reports anxiety, Reports depression, Reports difficulty concentrating, Reports auditory hallucinations and Reports visual hallucinations Mental Status Exam Mental Status Exam Patient Appearance: Appropriate Patient Orientation: Person, Place, Time and Situation Level of Consciousness: Alert Patient Behavior: Appropriate, Talkative, Cooperative and Good Eye Contact Mood Description: Suspicious, Fearful and Anxious Affect Description: Apprehensive Patient Cognition Impaired: No Ability to Follow Directions: Good Speech Pattern: Spontaneous Speech and Soft-Spoken Memory Description: Episodic Impaired Hallucinations: Auditory and Visual Delusions: Paranoid Ideation Perceptual Disturbances: Depersonalization and Derealization Thought Process: Distracted and Rumination Thought Content: positive for [place] and positive for [place] Depressive Symptoms: Increased Anxiety, Insomnia, Difficulty Sleeping and Difficulty Concentrating Abnormal Motor Activity Signs and Symptoms: Restlessness Judgement: Good Diagnostics Vital Signs (24Hr): Vital Signs - 24 hr 05/30/21 18:00 Temperature 98 F Pulse Rate 98 Respiratory Rate 16 Blood Pressure 132/87 Pulse Oximetry 98 BMI result Body Mass Index 41.1 Medications Medications Current Medications Acetaminophen (Acetaminophen 325 Mg Tablet) 650 mg PO Q6H PRN PRN Reason: Headache/Pain Mild Scale (1-3) Last Admin: 05/30/21 21:13 Dose: 650 mg Documented by: Al Hydroxide/Mg Hydroxide (Magnesium Hydrox/Alum Hydrox 30 Ml Oral.Susp) 30 ml PO Q6H PRN PRN Reason: Heartburn/Nausea Last Admin: 05/26/21 18:53 Dose: 30 ml Documented by: Benzocaine (Benzocaine 20 % Oral Gel 9 Gm Tube) 1 appl MUCOUS MEM QID PRN; Protocol PRN Reason: tooth pain Benztropine Mesylate (Benztropine Mesylate 0.5 Mg Tablet) 0.5 mg PO BEDTIME [facility] Last Admin: 05/30/21 19:34 Dose: 0.5 mg Documented by: Clonazepam (Clonazepam 1 Mg Tablet) 1 mg PO BID [facility] BEDS AT [facility] Last Admin: 05/30/21 19:34 Dose: 1 mg Documented by: Gabapentin (Gabapentin 100 Mg Capsule) 100 mg PO BID [facility]S INCLUDE 234 BEDS AT [facility] Last Admin: 05/30/21 19:35 Dose: 100 mg Documented by: Levothyroxine Sodium (Levothyroxine Sodium 112 Mcg Tablet) 112 mcg PO DAILY@0600 [facility]S [facility]CLUDE 234 BEDS AT [facility] Last Admin: 05/31/21 06:28 Dose: 112 mcg Documented by: Magnesium Hydroxide (Milk Of Magnesia 30 Ml Oral.Susp) 30 ml PO DAILY PRN PRN Reason: Constipation Last Admin: 05/23/21 13:33 Dose: 30 ml Documented by: Melatonin (Melatonin 3 Mg Tablet) 6 mg PO BEDTIME PRN PRN Reason: insomnia Last Admin: 05/30/21 20:16 Dose: 6 mg Documented by: Mirtazapine (Mirtazapine 15 Mg Tablet) 15 mg PO BEDTIME [facility]S INCLUDE 234 BEDS AT [facility] Last Admin: 05/30/21 19:34 Dose: 15 mg Documented by: Perphenazine (Perphenazine 4 Mg Tablet) 4 mg PO TID PRN PRN Reason: auditory perceptual alterations Prazosin HCl (Prazosin Hcl 1 Mg Capsule) 1 mg PO BEDTIME [facility]S INCLUDE 234 BEDS AT [facility]; Protocol Last Admin: 05/30/21 19:35 Dose: 1 mg Documented by: Propranolol HCl (Propranolol Hcl 10 Mg Tablet) 10 mg PO TID [facility]S INCLUDE 234 BEDS AT [facility]; Protocol Last Admin: 05/30/21 20:25 Dose: 10 mg Documented by: Quetiapine Fumarate (Quetiapine Fumarate 100 Mg Tablet) 500 mg PO BEDTIME [facility]S INCLUDE 234 BEDS AT [facility] Last Admin: 05/30/21 19:34 Dose: 500 mg Documented by: Sertraline HCl (Sertraline Hcl 50 Mg Tablet) 150 mg PO DAILY [facility]S INCLUDE 234 BEDS AT [facility] Last Admin: 05/30/21 09:06 Dose: 150 mg Documented by: Allergies Allergies Allergy/AdvReac Type Severity Reaction Status Date / Time shellfish derived AdvReac Severe Vomiting Verified 05/22/21 19:21 Assessment & Plan Assessment & Plan (1) Severe recurrent major depression w/psychotic features, mood-congruent: Status: Acute Code(s): F33.3 - Major depressive disorder, recurrent, severe with psychotic symptoms Plan 35 yo female, recent discharge from [facility] reporting an increase in depressive sx with SI, HI, AH, VH and paranoia. Plan: Re-establish regime Attempt to treat akathesia Labs, EKG Trileptal 300 mg bid to assist with anxiety, mood mgt. Collateral contacts 05/23/21 Urinary retention- HCG, UA, UC Akathesia-continue propranolol, schedule klonopin, lorazepam prn, low dose Gabapentin, Mirtazapine Discontinue hydroxyzine, benztropine, haldol, taper Trileptal Constipation-monitor Insomnia-continue seroquel, mirtazapine. 05/24 mag citrate x1 otherwise, no changes to regimen 05/25 Reports bothersome AH however does not want change in medication and wants to see if resolves on its own 05/26/21 Discontinue Ambien Increase Mirtazapine to 15 mg HS to address sleep, anxiety, depressive sx. Anbesol prn for dental pain Benztropine 0.5 mg HS 05/28/21 Continue current regime Process concerns at home-encourage groups, individual work to begin to plan for her future. 05/29/21 Perphenazine prn for perceptual alterations. 05/30/21 Prazosin 1 mg hs Consolidate Seroquel to 500 mg HS. Discontinue a.m. dosing 05/31/2021: Continue current regimen and plans with no changes today I spent minutes with the patient and/or on the patient floor today, greater than?50% of which was spent counseling/coordinating care. Reason for contiued inpatient stay Substantial Risk for: other
[2021-05-31 08:50] VITALS: BP 120/85; PULSE 110; TEMP 36.6
[2021-05-31] MEDS: Propranolol HCL 10 MG TABLET PO ×3 (09:02→20:08)
[2021-05-31] MEDS: clonazePAM 1 MG TABLET PO ×2 (09:02→20:09)
[2021-05-31] MEDS: Gabapentin 100 MG CAPSULE PO ×2 (09:03→20:08)
[2021-05-31] MEDS: Sertraline HCL 50 MG TABLET 150 MG PO (09:03)
[2021-05-31 16:25] VITALS: BP 122/88; PULSE 94; TEMP 36.1
[2021-05-31] MEDS: Benzocaine 20 % Oral Gel 9 GM TUBE 1 APPL MUCOUS MEM (16:28)
[2021-05-31] MEDS: QUEtiapine Fumarate 100 MG TABLET 500 MG PO (20:07)
[2021-05-31] MEDS: Benztropine Mesylate 0.5 MG TABLET PO (20:07)
[2021-05-31] MEDS: Mirtazapine 15 MG TABLET PO (20:08)
[2021-05-31] MEDS: Melatonin 3 MG TABLET 6 MG PO (20:08)
[2021-05-31] MEDS: Prazosin HCL 1 MG CAPSULE PO (20:09)
[2021-05-31] MEDS: Acetaminophen 325 MG TABLET 650 MG PO (20:10)
[2021-06-01] MEDS: Levothyroxine Sodium 112 MCG TABLET PO (05:27)
[2021-06-01 06:00] VITALS: BP 126/74; PULSE 86; RESP 16; TEMP 36.4; O2SAT 95
[2021-06-01] MEDS: Gabapentin 100 MG CAPSULE PO ×2 (08:36→20:17)
[2021-06-01] MEDS: clonazePAM 1 MG TABLET PO ×2 (08:36→20:14)
[2021-06-01] MEDS: Sertraline HCL 50 MG TABLET 150 MG PO (08:36)
[2021-06-01] MEDS: Propranolol HCL 10 MG TABLET PO ×3 (08:37→20:14)
--- NOTE | 2021-06-01 09:17 | P.PNPSI_ITS ---
Subjective Subjective Date of Service: 06/01/21 Reason For Visit: Major Depressive Disorder Subjective Notes: Conditional Voluntary Interim History: Patient was seen and discussed in rounds today. She continues to have racing thoughts and some command hallucinations. She denies any active suicidal or homicidal ideations. Eating and sleeping adequately. No complaints or side effects. No changes were made today Medication Compliance: Yes Side effects from medications: No Review of Systems Reports dental pain Psychiatric: Reports abnormal sleep pattern, Reports anxiety, Reports depression, Reports difficulty concentrating, Reports auditory hallucinations and Reports visual hallucinations Mental Status Exam Mental Status Exam Narrative: In today's visit she is alert, oriented and pleasant. Speech is normal. Little eye contact. Affect is appropriate and constricted. She is guarded. She does admit to auditory hallucinations and command hallucinations. She denies any active suicidal ideations. Cognitively she has slow thought processes. Judgment is mostly intact Diagnostics Vital Signs (24Hr): Vital Signs - 24 hr 05/31/21 16:25 06/01/21 06:00 Temperature 96.9 F 97.6 F Pulse Rate 94 86 Respiratory Rate 16 Blood Pressure 122/88 126/74 Pulse Oximetry 95 BMI result Body Mass Index 41.1 Medications Medications Current Medications Acetaminophen (Acetaminophen 325 Mg Tablet) 650 mg PO Q6H PRN PRN Reason: Headache/Pain Mild Scale (1-3) Last Admin: 05/31/21 20:10 Dose: 650 mg Documented by: Al Hydroxide/Mg Hydroxide (Magnesium Hydrox/Alum Hydrox 30 Ml Oral.Susp) 30 ml PO Q6H PRN PRN Reason: Heartburn/Nausea Last Admin: 05/26/21 18:53 Dose: 30 ml Documented by: Benzocaine (Benzocaine 20 % Oral Gel 9 Gm Tube) 1 appl MUCOUS MEM QID PRN; Protocol PRN Reason: tooth pain Last Admin: 05/31/21 16:28 Dose: 1 appl Documented by: Benztropine Mesylate (Benztropine Mesylate 0.5 Mg Tablet) 0.5 mg PO BEDTIME [facility] Last Admin: 05/31/21 20:07 Dose: 0.5 mg Documented by: Clonazepam (Clonazepam 1 Mg Tablet) 1 mg PO BID [facility] Last Admin: 06/01/21 08:36 Dose: 1 mg Documented by: Gabapentin (Gabapentin 100 Mg Capsule) 100 mg PO BID [facility] Last Admin: 06/01/21 08:36 Dose: 100 mg Documented by: Levothyroxine Sodium (Levothyroxine Sodium 112 Mcg Tablet) 112 mcg PO DAILY@0600 [facility] Last Admin: 06/01/21 05:27 Dose: 112 mcg Documented by: Magnesium Hydroxide (Milk Of Magnesia 30 Ml Oral.Susp) 30 ml PO DAILY PRN PRN Reason: Constipation Last Admin: 05/23/21 13:33 Dose: 30 ml Documented by: Melatonin (Melatonin 3 Mg Tablet) 6 mg PO BEDTIME PRN PRN Reason: insomnia Last Admin: 05/31/21 20:08 Dose: 6 mg Documented by: Mirtazapine (Mirtazapine 15 Mg Tablet) 15 mg PO BEDTIME [facility] Last Admin: 05/31/21 20:08 Dose: 15 mg Documented by: Perphenazine (Perphenazine 4 Mg Tablet) 4 mg PO TID PRN PRN Reason: auditory perceptual alterations Prazosin HCl (Prazosin Hcl 1 Mg Capsule) 1 mg PO BEDTIME [facility]; Protocol Last Admin: 05/31/21 20:09 Dose: 1 mg Documented by: Propranolol HCl (Propranolol Hcl 10 Mg Tablet) 10 mg PO TID [facility]; Protocol Last Admin: 06/01/21 08:37 Dose: 10 mg Documented by: Quetiapine Fumarate (Quetiapine Fumarate 100 Mg Tablet) 500 mg PO BEDTIME [facility] Last Admin: 05/31/21 20:07 Dose: 500 mg Documented by: Sertraline HCl (Sertraline Hcl 50 Mg Tablet) 150 mg PO DAILY [facility] Last Admin: 06/01/21 08:36 Dose: 150 mg Documented by: Allergies Allergies Allergy/AdvReac Type Severity Reaction Status Date / Time shellfish derived AdvReac Severe Vomiting Verified 05/22/21 19:21 Assessment & Plan Assessment & Plan (1) Severe recurrent major depression w/psychotic features, mood-congruent: Status: Acute Code(s): F33.3 - Major depressive disorder, recurrent, severe with psychotic symptoms Plan 35 yo female, recent discharge from [facility] reporting an increase in depressive sx with SI, HI, AH, VH and paranoia. Plan: Re-establish regime Attempt to treat akathesia Labs, EKG Trileptal 300 mg bid to assist with anxiety, mood mgt. Collateral contacts 05/23/21 Urinary retention- HCG, UA, UC Akathesia-continue propranolol, schedule klonopin, lorazepam prn, low dose Gabapentin, Mirtazapine Discontinue hydroxyzine, benztropine, haldol, taper Trileptal Constipation-monitor Insomnia-continue seroquel, mirtazapine. 05/24 mag citrate x1 otherwise, no changes to regimen 05/25 Reports bothersome AH however does not want change in medication and wants to see if resolves on its own 05/26/21 Discontinue Ambien Increase Mirtazapine to 15 mg HS to address sleep, anxiety, depressive sx. Anbesol prn for dental pain Benztropine 0.5 mg HS 05/28/21 Continue current regime Process concerns at home-encourage groups, individual work to begin to plan for her future. 05/29/21 Perphenazine prn for perceptual alterations. 05/30/21 Prazosin 1 mg hs Consolidate Seroquel to 500 mg HS. Discontinue a.m. dosing 05/31/2021: Continue current regimen and plans with no changes today 06/01/2021: Continue current regimen and plans I spent minutes with the patient and/or on the patient floor today, greater than?50% of which was spent counseling/coordinating care. Reason for contiued inpatient stay Substantial Risk for: harm to self and other
[2021-06-01 14:29] VITALS: BP 124/78; PULSE 106
[2021-06-01] MEDS: Benzocaine 20 % Oral Gel 9 GM TUBE 1 APPL MUCOUS MEM (16:25)
[2021-06-01 19:55] VITALS: BP 140/91; PULSE 87; RESP 18; TEMP 36.1; O2SAT 98
[2021-06-01] MEDS: Melatonin 3 MG TABLET 6 MG PO (20:13)
[2021-06-01] MEDS: Acetaminophen 325 MG TABLET 650 MG PO (20:14)
[2021-06-01] MEDS: QUEtiapine Fumarate 100 MG TABLET 500 MG PO (20:14)
[2021-06-01] MEDS: Benztropine Mesylate 0.5 MG TABLET PO (20:14)
[2021-06-01] MEDS: Mirtazapine 15 MG TABLET PO (20:14)
[2021-06-01] MEDS: Prazosin HCL 1 MG CAPSULE PO (20:14)
[2021-06-02 06:00] VITALS: BP 122/60; PULSE 88; RESP 18; TEMP 36.5; O2SAT 98
[2021-06-02] MEDS: Levothyroxine Sodium 112 MCG TABLET PO (06:44)
[2021-06-02] MEDS: Gabapentin 100 MG CAPSULE PO ×2 (07:46→20:10)
[2021-06-02] MEDS: Propranolol HCL 10 MG TABLET PO ×3 (07:46→20:09)
[2021-06-02] MEDS: Sertraline HCL 50 MG TABLET 150 MG PO (07:46)
[2021-06-02] MEDS: clonazePAM 1 MG TABLET PO ×2 (07:46→20:10)
--- NOTE | 2021-06-02 11:03 | HO.PSYCHPN ---
Subjective Subjective Date of Service: 06/02/21 Reason For Visit: Major Depressive Disorder Subjective Notes: Conditional Voluntary Healthcare Proxy: No Guardianship: No Medical Problems Affecting Mental Status: No Interim History: Discussed discharge with pt. She is feeling stuck, not wanting to leave hospital and return home as she reports and family make her anxiety increase as they are critical. She denies any sort of abuse from or family but reports they provide constant feedback regarding her lack of parenting skill. Discussed asking for voluntary services from [facility]. She will consider. She is persistant in telling team she is not ready to leave and does not want to return to her home. She asks that we find her an apartment. Discussed hospital role and limitations of ability to find her housing. Christi Damian has put in a [facility] application in her prior admission. Discussed with pt that they may be able to assist with housing. Medication Compliance: Yes Side effects from medications: No Attending Groups: Intermittent Review of Systems Acute medical concerns: No Medical Review of Systems: unchanged Review of Systems Reports behavioral changes Psychiatric: Reports anxiety, Reports behavioral changes, Reports depression and Reports suicidal ideation (denies, can I stay if I say that? ) Mental Status Exam Mental Status Exam Patient Appearance: Appropriate Patient Orientation: Person, Place, Time and Situation Level of Consciousness: Alert Patient Behavior: Talkative and Good Eye Contact Mood Description: Anxious and Apprehensive Affect Description: Flat Patient Cognition Impaired: No Ability to Follow Directions: Good Speech Pattern: Spontaneous Speech Memory Description: Episodic Impaired Hallucinations: None Delusions: Not Present Thought Process: Distracted and Rumination Thought Content: positive for [place] and positive for Circumstantial Depressive Symptoms: Increased Anxiety, Diff. Making Decisions and Unhappiness Judgement: Fair Diagnostics Vital Signs (24Hr): Vital Signs - 24 hr 06/01/21 14:29 06/01/21 19:55 06/02/21 06:00 Temperature 97.0 F 97.7 F Pulse Rate 106 H 87 88 Respiratory Rate 18 18 Blood Pressure 124/78 140/91 H 122/60 Pulse Oximetry 98 98 BMI result Body Mass Index 41.1 Medications Medications Current Medications Acetaminophen (Acetaminophen 325 Mg Tablet) 650 mg PO Q6H PRN PRN Reason: Headache/Pain Mild Scale (1-3) Last Admin: 06/01/21 20:14 Dose: 650 mg Documented by: Al Hydroxide/Mg Hydroxide (Magnesium Hydrox/Alum Hydrox 30 Ml Oral.Susp) 30 ml PO Q6H PRN PRN Reason: Heartburn/Nausea Last Admin: 05/26/21 18:53 Dose: 30 ml Documented by: Benzocaine (Benzocaine 20 % Oral Gel 9 Gm Tube) 1 appl MUCOUS MEM QID PRN; Protocol PRN Reason: tooth pain Last Admin: 06/01/21 16:25 Dose: 1 appl Documented by: Benztropine Mesylate (Benztropine Mesylate 0.5 Mg Tablet) 0.5 mg PO BEDTIME [facility] Last Admin: 06/01/21 20:14 Dose: 0.5 mg Documented by: Clonazepam (Clonazepam 1 Mg Tablet) 1 mg PO BID [facility] Last Admin: 06/02/21 07:46 Dose: 1 mg Documented by: Gabapentin (Gabapentin 100 Mg Capsule) 100 mg PO BID [facility] Last Admin: 06/02/21 07:46 Dose: 100 mg Documented by: Levothyroxine Sodium (Levothyroxine Sodium 112 Mcg Tablet) 112 mcg PO DAILY@0600 [facility] Last Admin: 06/02/21 06:44 Dose: 112 mcg Documented by: Magnesium Hydroxide (Milk Of Magnesia 30 Ml Oral.Susp) 30 ml PO DAILY PRN PRN Reason: Constipation Last Admin: 05/23/21 13:33 Dose: 30 ml Documented by: Melatonin (Melatonin 3 Mg Tablet) 6 mg PO BEDTIME PRN PRN Reason: insomnia Last Admin: 06/01/21 20:13 Dose: 6 mg Documented by: Mirtazapine (Mirtazapine 15 Mg Tablet) 15 mg PO BEDTIME [facility] Last Admin: 06/01/21 20:14 Dose: 15 mg Documented by: Perphenazine (Perphenazine 4 Mg Tablet) 4 mg PO TID PRN PRN Reason: auditory perceptual alterations Prazosin HCl (Prazosin Hcl 1 Mg Capsule) 1 mg PO BEDTIME [facility]; Protocol Last Admin: 06/01/21 20:14 Dose: 1 mg Documented by: Propranolol HCl (Propranolol Hcl 10 Mg Tablet) 10 mg PO TID [facility]; Protocol Last Admin: 06/02/21 07:46 Dose: 10 mg Documented by: Quetiapine Fumarate (Quetiapine Fumarate 100 Mg Tablet) 500 mg PO BEDTIME [facility] Last Admin: 06/01/21 20:14 Dose: 500 mg Documented by: Sertraline HCl (Sertraline Hcl 50 Mg Tablet) 150 mg PO DAILY [facility] Last Admin: 06/02/21 07:46 Dose: 150 mg Documented by: Allergies Allergies Allergy/AdvReac Type Severity Reaction Status Date / Time shellfish derived AdvReac Severe Vomiting Verified 05/22/21 19:21 Assessment & Plan Assessment & Plan (1) Severe recurrent major depression w/psychotic features, mood-congruent: Status: Acute Code(s): F33.3 - Major depressive disorder, recurrent, severe with psychotic symptoms Plan 35 yo female, recent discharge from [facility] reporting an increase in depressive sx with SI, HI, AH, VH and paranoia. Plan: Re-establish regime Attempt to treat akathesia Labs, EKG Trileptal 300 mg bid to assist with anxiety, mood mgt. Collateral contacts 05/23/21 Urinary retention- HCG, UA, UC Akathesia-continue propranolol, schedule klonopin, lorazepam prn, low dose Gabapentin, Mirtazapine Discontinue hydroxyzine, benztropine, haldol, taper Trileptal Constipation-monitor Insomnia-continue seroquel, mirtazapine. 05/24 mag citrate x1 otherwise, no changes to regimen 05/25 Reports bothersome AH however does not want change in medication and wants to see if resolves on its own 05/26/21 Discontinue Ambien Increase Mirtazapine to 15 mg HS to address sleep, anxiety, depressive sx. Anbesol prn for dental pain Benztropine 0.5 mg HS 05/28/21 Continue current regime Process concerns at home-encourage groups, individual work to begin to plan for her future. 05/29/21 Perphenazine prn for perceptual alterations. 05/30/21 Prazosin 1 mg hs Consolidate Seroquel to 500 mg HS. Discontinue a.m. dosing 05/31/2021: Continue current regimen and plans with no changes today 06/01/2021: Continue current regimen and plans 06/02/21: Continue current plan. Message left for , Harry [phone] without response Family still has not responded to messages from team regarding pt Pt to consider DCF involvement Tentative discharge 06/05/21. I spent minutes with the patient and/or on the patient floor today, greater than?50% of which was spent counseling/coordinating care. Patient educated on: therapeutic strategies and other Informed Consent: further education needed Reason for contiued inpatient stay Substantial Risk for: inability to function and rapid decompensation
[2021-06-02] MEDS: Benzocaine 20 % Oral Gel 9 GM TUBE 1 APPL MUCOUS MEM ×2 (11:21→15:29)
[2021-06-02 13:45] VITALS: BP 131/77; PULSE 78; RESP 16
[2021-06-02] MEDS: Perphenazine 4 MG TABLET PO ×2 (15:27→21:39)
[2021-06-02] MEDS: QUEtiapine Fumarate 100 MG TABLET 500 MG PO (20:07)
[2021-06-02] MEDS: Melatonin 3 MG TABLET 6 MG PO (20:08)
[2021-06-02] MEDS: Acetaminophen 325 MG TABLET 650 MG PO (20:09)
[2021-06-02] MEDS: Prazosin HCL 1 MG CAPSULE PO (20:09)
[2021-06-02 20:10] VITALS: BP 144/96; PULSE 94; TEMP 35.7
[2021-06-02] MEDS: Mirtazapine 15 MG TABLET PO (20:10)
[2021-06-02] MEDS: Benztropine Mesylate 0.5 MG TABLET PO (20:11)
[2021-06-03 06:00] VITALS: BP 85/50; PULSE 81; RESP 16; TEMP 35.9; O2SAT 97
[2021-06-03] MEDS: Levothyroxine Sodium 112 MCG TABLET PO (06:29)
[2021-06-03] MEDS: Propranolol HCL 10 MG TABLET PO ×3 (09:33→20:42)
[2021-06-03] MEDS: Gabapentin 100 MG CAPSULE PO ×2 (09:34→20:42)
[2021-06-03] MEDS: clonazePAM 1 MG TABLET PO ×2 (09:34→20:44)
[2021-06-03] MEDS: Sertraline HCL 50 MG TABLET 150 MG PO (09:34)
[2021-06-03] MEDS: Acetaminophen 325 MG TABLET 650 MG PO ×2 (09:51→20:41)
[2021-06-03] MEDS: Benzocaine 20 % Oral Gel 9 GM TUBE 1 APPL MUCOUS MEM (09:52)
[2021-06-03] MEDS: Perphenazine 4 MG TABLET PO (14:28)
--- NOTE | 2021-06-03 17:46 | P.PNPSI_ITS ---
Subjective Subjective Date of Service: 06/03/21 Reason For Visit: Major Depressive Disorder Interim History: Met with pt and Mingo DAVILA to review discharge planning. Family/ have still not returned calls regarding pt. Pt wanting to remain in hospital indefinitely so we can find housing for her. Education provided regarding the hospitals role. Discussed pt asking for voluntary services from [facility]. She prefers 51A be filed so an assessment may be completed and she can work with their team from their assessment data Reports med regime to be effective, tolerated. More visable on the unit, attending groups. Vocal with team about not wanting to leave, not being ready to leave and wanting new housing to be found before discharge. Medication Compliance: Yes Side effects from medications: No Attending Groups: Yes Review of Systems Acute medical concerns: No Medical Review of Systems: unchanged Review of Systems Psychiatric: Reports anxiety, Reports difficulty concentrating and Reports anhedonia Mental Status Exam Mental Status Exam Patient Appearance: Appropriate Patient Orientation: Person, Place, Time and Situation Level of Consciousness: Alert Patient Behavior: Talkative and Good Eye Contact Mood Description: Anxious and Apprehensive Affect Description: Flat Patient Cognition Impaired: No Ability to Follow Directions: Good Speech Pattern: Spontaneous Speech Memory Description: Episodic Impaired Hallucinations: None Delusions: Not Present Thought Process: Distracted and Rumination Thought Content: positive for [place] and positive for Circumstantial Depressive Symptoms: Increased Anxiety, Diff. Making Decisions and Unhappiness Judgement: Fair Diagnostics Vital Signs (24Hr): Vital Signs - 24 hr 06/02/21 20:10 06/03/21 06:00 Temperature 96.3 F L 96.7 F L Pulse Rate 94 81 Respiratory Rate 16 Blood Pressure 144/96 H 85/50 L Pulse Oximetry 97 BMI result Body Mass Index 41.1 Medications Medications Current Medications Acetaminophen (Acetaminophen 325 Mg Tablet) 650 mg PO Q6H PRN PRN Reason: Headache/Pain Mild Scale (1-3) Last Admin: 06/03/21 09:51 Dose: 650 mg Documented by: Al Hydroxide/Mg Hydroxide (Magnesium Hydrox/Alum Hydrox 30 Ml Oral.Susp) 30 ml PO Q6H PRN PRN Reason: Heartburn/Nausea Last Admin: 05/26/21 18:53 Dose: 30 ml Documented by: Benzocaine (Benzocaine 20 % Oral Gel 9 Gm Tube) 1 appl MUCOUS MEM QID PRN; Protocol PRN Reason: tooth pain Last Admin: 06/03/21 09:52 Dose: 1 appl Documented by: Benztropine Mesylate (Benztropine Mesylate 0.5 Mg Tablet) 0.5 mg PO BEDTIME [facility] Last Admin: 06/02/21 20:11 Dose: 0.5 mg Documented by: Clonazepam (Clonazepam 1 Mg Tablet) 1 mg PO BID [facility] Last Admin: 06/03/21 09:34 Dose: 1 mg Documented by: Gabapentin (Gabapentin 100 Mg Capsule) 100 mg PO BID [facility] Last Admin: 06/03/21 09:34 Dose: 100 mg Documented by: Levothyroxine Sodium (Levothyroxine Sodium 112 Mcg Tablet) 112 mcg PO DAILY@0600 [facility] Last Admin: 06/03/21 06:29 Dose: 112 mcg Documented by: Magnesium Hydroxide (Milk Of Magnesia 30 Ml Oral.Susp) 30 ml PO DAILY PRN PRN Reason: Constipation Last Admin: 05/23/21 13:33 Dose: 30 ml Documented by: Melatonin (Melatonin 3 Mg Tablet) 6 mg PO BEDTIME PRN PRN Reason: insomnia Last Admin: 06/02/21 20:08 Dose: 6 mg Documented by: Mirtazapine (Mirtazapine 15 Mg Tablet) 15 mg PO BEDTIME [facility] Last Admin: 06/02/21 20:10 Dose: 15 mg Documented by: Perphenazine (Perphenazine 4 Mg Tablet) 4 mg PO TID PRN PRN Reason: auditory perceptual alterations Last Admin: 06/03/21 14:28 Dose: 4 mg Documented by: Prazosin HCl (Prazosin Hcl 1 Mg Capsule) 1 mg PO BEDTIME [facility]; Protocol Last Admin: 06/02/21 20:09 Dose: 1 mg Documented by: Propranolol HCl (Propranolol Hcl 10 Mg Tablet) 10 mg PO TID [facility]; Protocol Last Admin: 06/03/21 14:28 Dose: 10 mg Documented by: Quetiapine Fumarate (Quetiapine Fumarate 100 Mg Tablet) 500 mg PO BEDTIME [facility] Last Admin: 06/02/21 20:07 Dose: 500 mg Documented by: Sertraline HCl (Sertraline Hcl 50 Mg Tablet) 150 mg PO DAILY [facility] Last Admin: 06/03/21 09:34 Dose: 150 mg Documented by: Allergies Allergies Allergy/AdvReac Type Severity Reaction Status Date / Time shellfish derived AdvReac Severe Vomiting Verified 05/22/21 19:21 Assessment & Plan Assessment & Plan (1) Severe recurrent major depression w/psychotic features, mood-congruent: Status: Acute Code(s): F33.3 - Major depressive disorder, recurrent, severe with psychotic symptoms Plan 35 yo female, recent discharge from [facility] reporting an increase in depressive sx with SI, HI, AH, VH and paranoia. Plan: Re-establish regime Attempt to treat akathesia Labs, EKG Trileptal 300 mg bid to assist with anxiety, mood mgt. Collateral contacts 05/23/21 Urinary retention- HCG, UA, UC Akathesia-continue propranolol, schedule klonopin, lorazepam prn, low dose Gabapentin, Mirtazapine Discontinue hydroxyzine, benztropine, haldol, taper Trileptal Constipation-monitor Insomnia-continue seroquel, mirtazapine. 05/24 mag citrate x1 otherwise, no changes to regimen 05/25 Reports bothersome AH however does not want change in medication and wants to see if resolves on its own 05/26/21 Discontinue Ambien Increase Mirtazapine to 15 mg HS to address sleep, anxiety, depressive sx. Anbesol prn for dental pain Benztropine 0.5 mg HS 05/28/21 Continue current regime Process concerns at home-encourage groups, individual work to begin to plan for her future. 05/29/21 Perphenazine prn for perceptual alterations. 05/30/21 Prazosin 1 mg hs Consolidate Seroquel to 500 mg HS. Discontinue a.m. dosing 05/31/2021: Continue current regimen and plans with no changes today 06/01/2021: Continue current regimen and plans 06/02/21: Continue current plan. Message left for , Harry [phone] without response Family still has not responded to messages from team regarding pt Pt to consider DCF involvement Tentative discharge 06/05/21. 06/03/21: Continue current regime. Tentative discharge 06/05. Will file 51A for voluntary DCF services to assist pt in pare nting. I spent minutes with the patient and/or on the patient floor today, greater than?50% of which was spent counseling/coordinating care. Patient educated on: therapeutic strategies Informed Consent: further education needed Reason for contiued inpatient stay Substantial Risk for: inability to function and rapid decompensation
[2021-06-03 18:00] VITALS: BP 128/78; PULSE 78; RESP 16; TEMP 36.6; O2SAT 98
[2021-06-03] MEDS: Prazosin HCL 1 MG CAPSULE PO (20:40)
[2021-06-03] MEDS: QUEtiapine Fumarate 100 MG TABLET 500 MG PO (20:41)
[2021-06-03] MEDS: Melatonin 3 MG TABLET 6 MG PO (20:42)
[2021-06-03] MEDS: Benztropine Mesylate 0.5 MG TABLET PO (20:42)
[2021-06-03] MEDS: Mirtazapine 15 MG TABLET PO (20:44)
[2021-06-04] MEDS: Levothyroxine Sodium 112 MCG TABLET PO (06:07)
[2021-06-04 08:55] VITALS: BP 138/86; PULSE 109; RESP 18; TEMP 36.6; O2SAT 98
[2021-06-04] MEDS: clonazePAM 1 MG TABLET PO ×2 (09:00→20:35)
[2021-06-04] MEDS: Propranolol HCL 10 MG TABLET PO ×3 (09:00→20:35)
[2021-06-04] MEDS: Sertraline HCL 50 MG TABLET 150 MG PO (09:00)
[2021-06-04] MEDS: Gabapentin 100 MG CAPSULE PO ×2 (09:00→20:35)
--- NOTE | 2021-06-04 10:40 | P.PNPSI_ITS ---
Subjective Subjective Date of Service: 06/04/21 Reason For Visit: Major Depressive Disorder Interim History: Anthony reports anxiety regarding discharge scheduled for 06/05. Discussed participating in out pt care, working with DCF to strengthen her skills as a parent and with [facility] for personal care and housing options. Medication Compliance: Yes Side effects from medications: No Attending Groups: Intermittent Review of Systems Acute medical concerns: No Medical Review of Systems: unchanged Review of Systems Psychiatric: Reports anxiety, Reports difficulty concentrating and Reports anhedonia Mental Status Exam Mental Status Exam Patient Appearance: Appropriate Patient Orientation: Person, Place, Time and Situation Level of Consciousness: Alert Patient Behavior: Talkative and Good Eye Contact Mood Description: Anxious and Apprehensive Affect Description: Flat Patient Cognition Impaired: No Ability to Follow Directions: Good Speech Pattern: Spontaneous Speech Memory Description: Episodic Impaired Hallucinations: None Delusions: Not Present Thought Process: Distracted and Rumination Thought Content: positive for [place] and positive for Circumstantial Depressive Symptoms: Increased Anxiety, Diff. Making Decisions and Unhappiness Judgement: Fair Diagnostics Vital Signs (24Hr): Vital Signs - 24 hr 06/03/21 18:00 06/04/21 08:55 Temperature 97.8 F 97.9 F Pulse Rate 78 109 H Respiratory Rate 16 18 Blood Pressure 128/78 138/86 Pulse Oximetry 98 98 BMI result Body Mass Index 41.1 Medications Medications Current Medications Acetaminophen (Acetaminophen 325 Mg Tablet) 650 mg PO Q6H PRN PRN Reason: Headache/Pain Mild Scale (1-3) Last Admin: 06/03/21 20:41 Dose: 650 mg Documented by: Al Hydroxide/Mg Hydroxide (Magnesium Hydrox/Alum Hydrox 30 Ml Oral.Susp) 30 ml PO Q6H PRN PRN Reason: Heartburn/Nausea Last Admin: 05/26/21 18:53 Dose: 30 ml Documented by: Benzocaine (Benzocaine 20 % Oral Gel 9 Gm Tube) 1 appl MUCOUS MEM QID PRN; Protocol PRN Reason: tooth pain Last Admin: 06/03/21 09:52 Dose: 1 appl Documented by: Benztropine Mesylate (Benztropine Mesylate 0.5 Mg Tablet) 0.5 mg PO BEDTIME [facility] Last Admin: 06/03/21 20:42 Dose: 0.5 mg Documented by: Clonazepam (Clonazepam 1 Mg Tablet) 1 mg PO BID [facility] Last Admin: 06/04/21 09:00 Dose: 1 mg Documented by: Gabapentin (Gabapentin 100 Mg Capsule) 100 mg PO BID [facility] Last Admin: 06/04/21 09:00 Dose: 100 mg Documented by: Levothyroxine Sodium (Levothyroxine Sodium 112 Mcg Tablet) 112 mcg PO DAILY@0600 [facility] Last Admin: 06/04/21 06:07 Dose: 112 mcg Documented by: Magnesium Hydroxide (Milk Of Magnesia 30 Ml Oral.Susp) 30 ml PO DAILY PRN PRN Reason: Constipation Last Admin: 05/23/21 13:33 Dose: 30 ml Documented by: Melatonin (Melatonin 3 Mg Tablet) 6 mg PO BEDTIME PRN PRN Reason: insomnia Last Admin: 06/03/21 20:42 Dose: 6 mg Documented by: Mirtazapine (Mirtazapine 15 Mg Tablet) 15 mg PO BEDTIME [facility] Last Admin: 06/03/21 20:44 Dose: 15 mg Documented by: Perphenazine (Perphenazine 4 Mg Tablet) 4 mg PO TID PRN PRN Reason: auditory perceptual alterations Last Admin: 06/03/21 14:28 Dose: 4 mg Documented by: Prazosin HCl (Prazosin Hcl 1 Mg Capsule) 1 mg PO BEDTIME [facility]; Protocol Last Admin: 06/03/21 20:40 Dose: 1 mg Documented by: Propranolol HCl (Propranolol Hcl 10 Mg Tablet) 10 mg PO TID [facility]; Protocol Last Admin: 06/04/21 09:00 Dose: 10 mg Documented by: Quetiapine Fumarate (Quetiapine Fumarate 100 Mg Tablet) 500 mg PO BEDTIME [facility] Last Admin: 06/03/21 20:41 Dose: 500 mg Documented by: Sertraline HCl (Sertraline Hcl 50 Mg Tablet) 150 mg PO DAILY [facility] Last Admin: 06/04/21 09:00 Dose: 150 mg Documented by: Allergies Allergies Allergy/AdvReac Type Severity Reaction Status Date / Time shellfish derived AdvReac Severe Vomiting Verified 05/22/21 19:21 Assessment & Plan Assessment & Plan (1) Severe recurrent major depression w/psychotic features, mood-congruent: Status: Acute Code(s): F33.3 - Major depressive disorder, recurrent, severe with psychotic symptoms Plan 35 yo female, recent discharge from [facility] reporting an increase in depressi ve sx with SI, HI, AH, VH and paranoia. Plan: Re-establish regime Attempt to treat akathesia Labs, EKG Trileptal 300 mg bid to assist with anxiety, mood mgt. Collateral contacts 05/23/21 Urinary retention- HCG, UA, UC Akathesia-continue propranolol, schedule klonopin, lorazepam prn, low dose Gabapentin, Mirtazapine Discontinue hydroxyzine, benztropine, haldol, taper Trileptal Constipation-monitor Insomnia-continue seroquel, mirtazapine. 05/24 mag citrate x1 otherwise, no changes to regimen 05/25 Reports bothersome AH however does not want change in medication and wants to see if resolves on its own 05/26/21 Discontinue Ambien Increase Mirtazapine to 15 mg HS to address sleep, anxiety, depressive sx. Anbesol prn for dental pain Benztropine 0.5 mg HS 05/28/21 Continue current regime Process concerns at home-encourage groups, individual work to begin to plan for her future. 05/29/21 Perphenazine prn for perceptual alterations. 05/30/21 Prazosin 1 mg hs Consolidate Seroquel to 500 mg HS. Discontinue a.m. dosing 05/31/2021: Continue current regimen and plans with no changes today 06/01/2021: Continue current regimen and plans 06/02/21: Continue current plan. Message left for , Harry [phone] without response Family still has not responded to messages from team regarding pt Pt to consider DCF involvement Tentative discharge 06/05/21. 06/03/21: Continue current regime. Tentative discharge 06/05. Will file 51A for voluntary DCF services to assist pt in parenting. 06/04/21: Continue plan of care Discharge to home 06/05 with DCF, DM referrals in process. I spent minutes with the patient and/or on the patient floor today, greater than?50% of which was spent counseling/coordinating care. Patient educated on: medication risk/benefits, therapeutic strategies and other Informed Consent: further education needed Reason for contiued inpatient stay Substantial Risk for: inability to function and rapid decompensation
[2021-06-04] MEDS: Perphenazine 4 MG TABLET PO (11:15)
[2021-06-04 14:12] VITALS: BP 125/73; PULSE 97
[2021-06-04] MEDS: Benzocaine 20 % Oral Gel 9 GM TUBE 1 APPL MUCOUS MEM (15:03)
[2021-06-04 18:00] VITALS: BP 126/56; PULSE 73; TEMP 35.9; O2SAT 97
[2021-06-04] MEDS: QUEtiapine Fumarate 100 MG TABLET 500 MG PO (20:34)
[2021-06-04] MEDS: Acetaminophen 325 MG TABLET 650 MG PO (20:34)
[2021-06-04] MEDS: Melatonin 3 MG TABLET 6 MG PO (20:35)
[2021-06-04] MEDS: Benztropine Mesylate 0.5 MG TABLET PO (20:35)
[2021-06-04] MEDS: Prazosin HCL 1 MG CAPSULE PO (20:35)
[2021-06-04] MEDS: Mirtazapine 15 MG TABLET PO (20:35)
[2021-06-05] MEDS: Levothyroxine Sodium 112 MCG TABLET PO (05:59)
[2021-06-05] MEDS: Propranolol HCL 10 MG TABLET PO (09:00)
[2021-06-05] MEDS: Gabapentin 100 MG CAPSULE PO (09:00)
[2021-06-05] MEDS: Sertraline HCL 50 MG TABLET 150 MG PO (09:00)
[2021-06-05] MEDS: clonazePAM 1 MG TABLET PO (09:00)
[2021-06-05] MEDS: Perphenazine 4 MG TABLET PO (09:01)
[2021-06-05 09:02] VITALS: BP 126/78; PULSE 101; RESP 18; TEMP 36.9; O2SAT 98
[2021-06-05] MEDS: Acetaminophen 325 MG TABLET 650 MG PO (11:50)
--- NOTE | 2021-06-05 18:13 | PM.PSYDC ---
DS: Providers Provider Date of Service: 06/05/21 Date of admission: 05/21/21 18:37 Date of discharge: 06/05/21 Primary care physician: Unknown Physician Admitting clinician: Sonam Lazaro Attending physician on admission: Sonam Lazaro Consults: 05/21/21 19:10 Consult to Hospitalist Routine Consulting Provider: Hospitalist Reason For Exam: new admit from [facility] Attending physician on discharge: Sonam Lazaro Discharging clinician: Sonam Lazaro DS: Diagnosis Discharge Diagnosis (1) Severe recurrent major depression w/psychotic features, mood-congruent: Status: Acute DS: Medications Discharge Medications Home Medications: Home Medications Medication Instructions Recorded Confirmed acetaminophen 325 mg tablet 1 tab PO Q4H PRN 05/22/21 05/22/21 levothyroxine 112 mcg tablet 1 tab PO DAILY 05/22/21 05/22/21 melatonin 5 mg tablet 1 tab PO BEDTIME PRN 05/22/21 05/22/21 Previous Rx's Medication Instructions Recorded benztropine 0.5 mg tablet 0.5 mg PO BEDTIME #7 tab 06/04/21 clonazepam 0.5 mg tablet 1 tab PO BID PRN #14 tab 06/04/21 gabapentin 100 mg capsule 100 mg PO BID #14 cap 06/04/21 mirtazapine 7.5 mg tablet 1 tab PO BEDTIME #7 tab 06/04/21 perphenazine 4 mg tablet 4 mg PO DAILY #7 tab 06/04/21 prazosin 1 mg capsule 1 mg PO BEDTIME #7 cap 06/04/21 propranolol 10 mg tablet 1 tab PO BID #14 tab 06/04/21 quetiapine 100 mg tablet 500 mg PO BEDTIME #35 tab 06/04/21 sertraline 100 mg tablet 1.5 tab PO DAILY #12 tab 06/04/21 Mental Status Exam Mental Status Exam Patient Appearance: Appropriate Patient Orientation: Person, Place, Time and Situation Level of Consciousness: Alert Patient Behavior: Talkative and Good Eye Contact Mood Description: Anxious and Apprehensive Affect Description: Flat Patient Cognition Impaired: No Ability to Follow Directions: Good Speech Pattern: Spontaneous Speech Memory Description: Episodic Impaired Hallucinations: None Delusions: Not Present Thought Process: Distracted and Rumination Thought Content: positive for [place] and positive for Circumstantial Depressive Symptoms: Increased Anxiety, Diff. Making Decisions and Unhappiness Judgement: Fair Data Data Completed and Pending Completed studies during hospitalization [Text1]: 05/23/21 17:40 Urine clean catch - Clean Catch Midstream Urine Culture - Final DS: Summary Hospital Course Hospital Course: Admission to adult psychiatry to address symptoms of severe recurrent major depression with psychotic features and akathesia. Care plan, medication regime and out patient plan of care prior to admission were reviewed. Education was provided regarding management of symptoms, medications and side effects. Nursing and social work professor worked with Anthony on care planning, education and discharge planning. Family did not respond to outreach attempts during this admission, as a result we did not get their input. Anthony discussed the difficulties at home- wanting a divorce, family giving her feedback that she was inadequate in her parenting efforts, and Anthony describing drama in the home that increased her anxiety. She reported she lived with , 2 children, sister lives upstairs, step father lives downstairs, so the entire family is in the same home. She agreed to voluntary [facility] services to assist her with parenting skill as she is hoping to move to an apartment on her own. She is in process of acceptance by [facility] for services (applied when admitted recently to [facility], who were not available to share information regarding this admission). Prazosin was initiated for nightmares, Benztropine, Gabapentin were initiated for EPS. Low dose perphenazine was initiated for voices. Seroquel was consolidated, Klonopin, Mirtazapine, Propranolol were adjusted for EPS mgt and Ambien and Risperdal were stopped. Time spent discussing smoking cessation with patient: 3 to 10 minutes Status at Discharge Functional status at discharge: independent ambulation Overall status at discharge: patient is progressing back to baseline Time Spent with Patient Time attestation: Total time spent providing and/or coordinating discharge services: 45 Time spent: Greater than 30 minutes Discharge Plan Discharge Patient Disposition: Home, Self-Care Discharge Diagnosis: Recurrent major depression, severe Referrals: Arlet Davenport [Other] - 06/11/21 2:00 pm (Outpatient Psychiatry Appointment with medication provider Appointment is by tele-health. You will need to have conversation with provider by telephone.) [facility] RN [Other] - 1 Week (Fax- [phone]) Lynnette Frazier [Other] - Tomorrow (Patient agree's to follow-up with therapist following discharge as therapist was unable to be reached to schedule outpatient appointment did not respond to voice mail messages.) Monisha Nixon DO [Physician] - 06/12/21 9:40 am (in office) Discharge Medications: New benztropine 0.5 mg Tablet 0.5 mg PO BEDTIME Qty: 7 0RF prazosin 1 mg Capsule 1 mg PO BEDTIME Qty: 7 0RF Protocol: Hold for SBP< HOLD for SBP < : 90 quetiapine 100 mg Tablet 500 mg PO BEDTIME Qty: 35 0RF perphenazine 4 mg Tablet 4 mg PO DAILY Qty: 7 0RF gabapentin 100 mg Capsule 100 mg PO BID Qty: 14 0RF Continued acetaminophen 325 mg tablet 1 tab PO Q4H PRN (Reason: pain) 0RF levothyroxine 112 mcg tablet 1 tab PO DAILY 0RF melatonin 5 mg tablet 1 tab PO BEDTIME PRN (Reason: insomnia) 0RF clonazepam 0.5 mg tablet 1 tab PO BID PRN (Reason: anxiety) Qty: 14 0RF sertraline 100 mg tablet 1.5 tab PO DAILY Qty: 12 0RF propranolol 10 mg tablet 1 tab PO BID Qty: 14 0RF mirtazapine 7.5 mg tablet 1 tab PO BEDTIME Qty: 7 0RF Discontinued nitrofurantoin monohyd/m-cryst [Macrobid] 100 mg capsule 100 mg PO Q12H 7 Days Qty: 14 0RF Rx Instructions: must administer with a meal/food risperidone 2 mg tablet 1 tab PO BID 0RF zolpidem 10 mg tablet 1 tab PO BEDTIME PRN (Reason: insomnia) 0RF Discharge Orders: Discharge Order (Routine); Ordered 06/05/21 Ordered By: Sonam Lazaro Diet: advance to usual diet Activity on Discharge: As tolerated Stand Alone Forms: Patient Portal Discharge page, Community Support Care Plan Goals: Mood Stabilization Health Concerns: Recurrent major depression, severe Plan of Treatment: Attend scheduled appointments Take medications as directed You have agreed to voluntary services with [facility] to strengthen your parenting skills. They will contact you to make an appointment Assessment: anxious to face her family non-suicidal non-psychotic Discharge Date/Time: 06/05/21 13:30
== END 2021-06-05 13:30 | disposition home or self-care (01) | DRG 751 ==
PROVIDERS: Registered Nurse; Admitting Provider Psychiatry & Neurology Psychiatry; Visit Provider Clinical Nurse Specialist Psychiatric/Mental Health, Adult
DX: F33.3 Major depressive disorder, recurrent, severe with psychotic symptoms (principal); E03.9 Hypothyroidism, unspecified; I10 Essential (primary) hypertension; Z91.013 Allergy to seafood; Z79.890 Hormone replacement therapy; Z87.891 Personal history of nicotine dependence; Z79.899 Other long term (current) drug therapy
CPT/HCPCS: 36415; 80061; 81025; 82607; 82746; 83036; 83735; 84439; 84443; 84702; 87086; 90686; 93005